=== PATIENT | male | born 1965 | race African-American/Black ===

== ENCOUNTER 2017-01-09 09:53 | Inpatient (IN) | payer MEDICARE ==
[2017-01-09 12:00] VITALS: BMI 26.4
[2017-01-09] MEDS ORDERED: ACETAMINOPHEN 325 MG TABLET (FP) PO PRN (12:43)
[2017-01-09] MEDS ORDERED: chlordiazePOXIDE HCL 25 MG CAPSULE PO PRN (12:43)
[2017-01-09] MEDS ORDERED: NICOTINE POLACRILEX 4 MG GUM BUC PRN (12:43)
[2017-01-09] MEDS ORDERED: MENTHOL/PHENOL 1 EACH UD MM PRN (12:43)
[2017-01-09] MEDS ORDERED: LOPERAMIDE HCL 2 MG CAPSULE PO PRN (12:43)
[2017-01-09] MEDS ORDERED: IBUPROFEN 400 MG TABLET (FP) PO PRN (12:43)
[2017-01-09] MEDS ORDERED: MAG HYDROX/AL HYDROX/SIMETH 30 ML UNIT-DOSE CUP PO PRN (12:43)
[2017-01-09] MEDS ORDERED: diphenhydrAMINE HCL 50 MG CAPSULE PO PRN (12:43)
[2017-01-09] MEDS ORDERED: guaiFENesin/D-METHORPHAN HB 10 ML UNIT-DOSE CUPS PO PRN (12:43)
[2017-01-09] MEDS ORDERED: P-EPHED 60MG/TRIPROLIDI 2.5MG TABLET PO PRN (12:43)
[2017-01-09] MEDS ORDERED: MAGNESIUM CITRATE 300 ML BOTTLE PO PRN (12:43)
[2017-01-09] MEDS ORDERED: hydrOXYzine PAMOATE 50 MG CAPSULE (FP) PO PRN (12:43)
[2017-01-09] MEDS ORDERED: MAGNESIUM HYDROX 2400MG/30ML ORAL SUSPENSION 30 ML CUP PO PRN (12:43)
--- NOTE | 2017-01-09 12:43 | HP ---
CIWA Score - CIWA Score Nausea/Vomitin-Int. Nausea w/Dry Heave Muscle Tremors: 4-Moderate,w/Arms Extend Anxiety: 4-Mod. Anxious/Guarded Agitation: 4-Moderately Restless Paroxysmal Sweats: 3 Orientation: 0-Oriented Tacttile Disturbances: 0-None Auditory Disturbances: 0-None Visual Disturbances: 0-None Headache: 0-None Present CIWA-Ar Total Score: 19 Admission ROS S - HPI Chief Complaint: alcohol withdrawal sx noted by emergency department, patient denies Allergies/Adverse Reactions: Allergies Allergy/AdvReac Type Severity Reaction Status Date / Time No Known Allergies Allergy Verified 01/09/17 12:45 History of Present Illness: 51 yo m with no sig nificant medical history went to ED with abod pain nause and vomiting after eating bad meal as per patient, had twisted his ankle with brother and reports pain left ankle. In ED found to have elevated blood alcohol level and was intoxicated and then developed alcohol withdrawal sx, tremors which were treated with benzodiazepines and patient referred for admission for inpatient alcohol detox. patient denies h/o seziures, DTs but does admit to tremors and sweats when he does not drink, no h/o drug treatment or detox before. h/o DWI in past, smokes 1PPD. agrees to stay for accelerated etox from alcohol as he spent one day in ED. and was treated there. PMHx pneumonia 2 years ago. Exam Limitations: No Limitations - Ebola screening Have you traveled outside of the country in the last 21 days: No Have you had contact with anyone from an Ebola affected area: No Have you been sick,other than usual withdrawal symptoms: No Do you have a fever: No - Review of Systems Constitutional: Chills, Diaphoresis, Unintentional Wgt. Loss EENT: reports: No Symptoms Reported Respiratory: reports: No Symptoms reported Cardiac: reports: No Symptoms Reported GI: reports: Diarrhea (reports from food poisoning but may be from alcohol use) , Nausea, Poor Appetite, Poor Fluid Intake, Vomiting, Abdominal cramping : reports: No Symptoms Reported Musculoskeletal: reports: Joint Pain (left ankle with ninoska bandage from sprain), Joint Swelling (ankle injury 2 weeks ago, wrapped with ninoska bandage, no fully examined in ED but able to move PPP good blood flow, erythem with blister and bruising posterior medial malleolus blister 2 cm), Joint Stiffness Integumentary: reports: Flushing, Sweating Neuro: reports: Tremors, Weakness, Unsteady Gait (from ankle pain) Hematology: reports: No Symptoms Reported Psychiatric: reports: Judgement Intact, Mood/Affect Appropiate, Orientated x3, Agitated, Anxious, Depressed Other Systems: Reviewed and Negative Patient History - Patient Medical History Hx Anemia: No Hx Asthma: No Hx Chronic Obstructive Pulmonary Disease (COPD): No Hx Cancer: No Hx Cardiac Disorders: No Hx Congestive Heart Failure: No Hx Hypertension: No Hx Hypercholesterolemia: No Hx Pacemaker: No HX Cerebrovascular Accident: No Hx Seizures: No Hx Dementia: No Hx Diabetes: No Hx Gastrointestinal Disorders: No Hx Liver Disease: No Hx Genitourinary Disorders: No Hx Sexually Transmitted Disorders: No Hx Renal Disease (ESRD): No Hx Thyroid Disease: No Hx Human Immunodeficiency Virus (HIV): No Hx Hepatitis C: No Hx Depression: No Hx Suicide Attempt: No Hx Bipolar Disorder: No Hx Schizophrenia: No - Patient Surgical History Past Surgical History: No Anesthesia Reaction: No - PPD History Previous Implant?: Yes Documented Results: Negative w/o proof Implanted On Prior [facility] Admission?: No PPD to be Administered?: Yes - Reproductive History Patient is a Female of Child Bearing Age (11 -55 yrs old): No Patient : No - Smoking Cessation Smoking history: Current every day smoker Aproximately how many cigarettes per day: 20 If you are a former smoker, when did you quit?: REFUSED BOOKLET Initiated information on smoking cessation: Yes 'Breaking Loose' booklet given: 01/09/17 - Substance & Tx. History Hx Alcohol Use: Yes Hx Substance Use: No Substance Use Type: Alcohol Hx Substance Use Treatment: No (dwi in past???) - Substances Abused Alcohol-beer Route: Oral Frequency: Daily Amount used: 1-6 pk. Age of first use: 9 Date of Last Use: 01/08/17 Family Disease History - Family Disease History Family History: Denies Admission Physical Exam S - Vital Signs Vital Signs: Vital Signs - 24 hr 01/09/17 11:58 Temperature 99.0 F Pulse Rate 96 H Respiratory 16 Rate Blood Pressure 125/78 - Physical General Appearance: Yes: Nourished, Appropriately Dressed, Disheveled, Moderate Distress, Tremorous, Irritable, Sweating, Anxious HEENTM: Yes: Within Normal Limits, EOMI, Hearing grossly Normal, Normal ENT Inspection, Normocephalic, Normal Voice, KATHERINE, Pharynx Normal Respiratory: Yes: Within Normal Limits, Chest Non-Tender, Lungs Clear, Normal Breath Sounds, No Respiratory Distress, No Accessory Muscle Use Neck: Yes: Within Normal Limits, No masses,lesions,Nodules, Supple, Trachea in good position Breast: Yes: Breast Exam Deferred Cardiology: Yes: Within Normal Limits, Regular Rhythm, Regular Rate, S1, S2 Abdominal: Yes: Within Normal Limits, Normal Bowel Sounds, Non Tender, Flat, Soft Genitourinary: Yes: Within Normal Limits Back: Yes: Within Normal Limits, Normal Inspection Musculoskeletal: Yes: full range of Motion, Joint Stiffness, Joint swelling, Other (swollen ankle) Extremities: Yes: Normal Capillary Refill, Normal Inspection, Normal Range of Motion, Non-Tender, Tremors, Pedal Edema (left ankle with bruising andd blister) Neurological: Yes: flash 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 II-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 NML intact, Fully Oriented, Alert, Motor Strength 5/5, Normal Response, Depressed Affect Integumentary: Yes: Normal Color, Warm, Diaphoresis, Moist Lymphatic: Yes: Within Normal Limits - Addiitonal Findings: withdrawal sx - Diagnostic (1) Alcohol withdrawal Current Visit: Yes Status: Acute Qualifiers: Complication of substance-induced condition: uncomplicated Qualified Code(s): F10.230 - Alcohol dependence with withdrawal, uncomplicated; F10.230 - Alcohol dependence with withdrawal, uncomplicated; F10.230 - Alcohol dependence with withdrawal, uncomplicated (2) Insomnia Current Visit: Yes Status: Acute (3) Left ankle sprain Current Visit: Yes Status: Acute (4) Nicotine dependence Current Visit: Yes Status: Acute Qualifiers: Nicotine product type: cigarettes Cleared for Admission [facility] - Detox or Rehab [facility] Level of Care: Medically Managed Detox Regimen/Protocol: Librium [facility] Breath Alcohol Content Breath Alcohol Content: 0 Urine Drug Screen - Results Drug Screen Negative: No Urine Drug Screen Results: BZO-Benzodiazepines
[2017-01-09] MEDS ORDERED: chlordiazePOXIDE HCL 25 MG CAPSULE PO ONE (14:51)
[2017-01-09] MEDS ORDERED: ONDANSETRON *ODT* 4 MG TABLET SL PRN (14:53)
[2017-01-09] MEDS: NAPROXEN 500 MG TABLET (FP) PO SCH ×2 (15:52→22:29)
[2017-01-09] MEDS: PANTOPRAZOLE 40 MG TABLET (FP) PO SCH (15:52)
[2017-01-09] MEDS: NICOTINE 21 MG/24 HOURS TOPICAL PATCH TD SCH (15:57)
[2017-01-09] MEDS: CEPHALEXIN MONOHYDRATE 500 MG CAPSULE (UD) PO SCH ×2 (17:49→23:45)
[2017-01-09] MEDS: chlordiazePOXIDE HCL 25 MG CAPSULE PO SCH ×2 (17:49→22:29)
[2017-01-09] MEDS: THIAMINE HCL 100 MG TABLET (FP) PO SCH (22:29)
[2017-01-10 00:07] LABS: URINE APPEARANCE CLEAR; URINE BILIRUBIN NEGATIVE (NEGATIVE); URINE BLOOD NEGATIVE (NEGATIVE); URINE COLOR YELLOW; URINE GLUCOSE (UA) NEGATIVE (NEGATIVE); URINE KETONE 1+ (NEGATIVE); URINE NITRITE NEGATIVE (NEGATIVE); URINE PROTEIN NEGATIVE (NEGATIVE); URINE UROBILINOGEN NEGATIVE mg/dL (0.2-1.0)
[2017-01-10] MEDS: chlordiazePOXIDE HCL 25 MG CAPSULE PO SCH ×2 (05:35→10:26)
[2017-01-10] MEDS: CEPHALEXIN MONOHYDRATE 500 MG CAPSULE (UD) PO SCH ×4 (05:35→23:30)
[2017-01-10] MEDS: NICOTINE 21 MG/24 HOURS TOPICAL PATCH TD SCH (10:26)
[2017-01-10] MEDS: NAPROXEN 500 MG TABLET (FP) PO SCH ×2 (10:26→22:39)
[2017-01-10] MEDS: PRENATAL VITAMINS W/ FOLIC ACID TABLET (FP) PO SCH (10:26)
[2017-01-10] MEDS: PANTOPRAZOLE 40 MG TABLET (FP) PO SCH (10:26)
[2017-01-10 12:04] LABS: URINE LEUK ESTERASE Negative (NEGATIVE)
[2017-01-10] MEDS ORDERED: chlordiazePOXIDE HCL 25 MG CAPSULE PO SCH (17:00)
[2017-01-10] MEDS: chlordiazePOXIDE 5 MG CAPSULE PO SCH ×2 (17:59→22:40)
--- NOTE | 2017-01-10 20:17 | PN ---
[facility] CIWA - CIWA Score Nausea/Vomitin-No Nausea/No Vomiting Muscle Tremors: 4-Moderate,w/Arms Extend Anxiety: 2 Agitation: 2 Paroxysmal Sweats: 3 Orientation: 2-Disoriented Date<2 days Tacttile Disturbances: 0-None Auditory Disturbances: 0-None Visual Disturbances: 3-Moderate Sensitivity Headache: 0-None Present CIWA-Ar Total Score: 16 S Progress Note (SOAP) Subjective: Tremors, Fatigue, Sweating, Body Aches. Objective: PT. A & O X 2 (DISORIENTED ABOUT DAY / DATE). PT. OBSERVED AMBULATING ON UNIT. NO ACUTE DISTRESS. 01/10/17 20:13 Vital Signs Temperature 98.5 F 01/10/17 19:20 Pulse Rate 90 01/10/17 19:20 Respiratory Rate 19 01/10/17 19:20 Blood Pressure 154/106 01/10/17 19:20 O2 Sat by Pulse Oximetry (%) Laboratory Tests 01/09/17 01/10/17 01/10/17 23:20 08:00 08:00 Sickle Cell Screen Negative Urine Color Yellow Urine Appearance Clear Urine pH 5.0 Ur Specific [place] 1.020 Urine Protein Negative Urine Glucose (UA) Negative Urine Ketones 1+ H Urine Blood Negative Urine Nitrite Negative Urine Bilirubin Negative Urine Urobilinogen Negative Ur Leukocyte Esterase Negative RPR Titer Nonreactive ADMISSION LAB RESULTS NOTED. 01/10/17 20:18 Assessment: 01/10/17 20:18 WITHDRAWAL SYMPTOMS. Plan: CONTINUE DETOX. CONTINUE TO MONITOR BP.
[2017-01-10] MEDS: ZOLPIDEM TARTRATE 10 MG TABLET (PARK CARE ONLY) PO PRN (22:39)
[2017-01-10] MEDS: THIAMINE HCL 100 MG TABLET (FP) PO SCH (22:39)
[2017-01-10] MEDS ORDERED: cloNIDine HCL 0.1 MG TABLET PO ONE (22:43)
[2017-01-11] MEDS: CEPHALEXIN MONOHYDRATE 500 MG CAPSULE (UD) PO SCH ×4 (05:56→23:00)
[2017-01-11] MEDS: chlordiazePOXIDE 5 MG CAPSULE PO SCH ×2 (05:56→10:00)
[2017-01-11] MEDS: PRENATAL VITAMINS W/ FOLIC ACID TABLET (FP) PO SCH (10:00)
[2017-01-11] MEDS: NICOTINE 21 MG/24 HOURS TOPICAL PATCH TD SCH (10:00)
[2017-01-11] MEDS: PANTOPRAZOLE 40 MG TABLET (FP) PO SCH (10:00)
[2017-01-11] MEDS ORDERED: BACITRACIN 15 GM TUBE TOPICAL OINTMENT TP SCH (10:00)
[2017-01-11] MEDS: NAPROXEN 500 MG TABLET (FP) PO SCH ×2 (10:00→22:37)
[2017-01-11] MEDS ORDERED: BACITRACIN 0.9 GM PACKET TP SCH ×2 (10:03)
--- NOTE | 2017-01-11 11:45 | PN ---
S CIWA - CIWA Score Nausea/Vomitin-No Nausea/No Vomiting Muscle Tremors: 3 Anxiety: 3 Agitation: 4-Moderately Restless Paroxysmal Sweats: 3 Orientation: 0-Oriented Tacttile Disturbances: 0-None Auditory Disturbances: 0-None Visual Disturbances: 0-None Headache: 0-None Present CIWA-Ar Total Score: 13 [facility] Progress Note (SOAP) Subjective: Anxiety,tremors,interrupted sleep,restless Objective: 01/11/17 11:44 Vital Signs 01/11/17 01/11/17 01/11/17 03:56 05:00 10:02 Temperature 97.8 F 97.7 F Pulse Rate 77 106 H Respiratory 18 18 18 Rate Blood Pressure 150/100 139/86 01/11/17 10:07 Temperature 97.7 F Pulse Rate 106 H Respiratory 18 Rate Blood Pressure 139/86 Laboratory Tests 01/09/17 01/10/17 01/10/17 23:20 08:00 08:00 Sickle Cell Screen Negative Urine Color Yellow Urine Appearance Clear Urine pH 5.0 Ur Specific [place] 1.020 Urine Protein Negative Urine Glucose (UA) Negative Urine Ketones 1+ H Urine Blood Negative Urine Nitrite Negative Urine Bilirubin Negative Urine Urobilinogen Negative Ur Leukocyte Esterase Negative RPR Titer Nonreactive labs noted Assessment: 01/11/17 11:45 Withdrawal sx. Plan: Continue detox
[2017-01-11] MEDS ORDERED: chlordiazePOXIDE 5 MG CAPSULE PO SCH (17:00)
[2017-01-11] MEDS: chlordiazePOXIDE HCL 10 MG CAPSULE PO SCH ×2 (17:26→22:37)
--- NOTE | 2017-01-11 17:30 | EKG ---
Test Reason : Blood Pressure : / mmHG Vent. Rate : 091 BPM Atrial Rate : 091 BPM P-R Int : 184 ms QRS Dur : 090 ms QT Int : 388 ms P-R-T Axes : 057 014 032 degrees QTc Int : 477 ms NORMAL SINUS RHYTHM POOR R WAVE PROGRESSION V1-V3 NONSPECIFIC ST-T ABNORMALITIES WHEN COMPARED WITH ECG OF 09-JAN-2017 06:14, NO SIGNIFICANT CHANGE WAS FOUND Confirmed by CULLEN WATSON MD ([id number]) on 01/11/2017 5:29:51 PM Referred By: Confirmed By:CULLEN WATSON MD
[2017-01-11] MEDS: THIAMINE HCL 100 MG TABLET (FP) PO SCH (22:37)
[2017-01-11] MEDS ORDERED: cloNIDine HCL 0.1 MG TABLET PO ONE (22:37)
[2017-01-11] MEDS: ZOLPIDEM TARTRATE 10 MG TABLET (PARK CARE ONLY) PO PRN (22:38)
[2017-01-12] MEDS: chlordiazePOXIDE HCL 10 MG CAPSULE PO SCH ×2 (05:23→10:35)
[2017-01-12] MEDS: CEPHALEXIN MONOHYDRATE 500 MG CAPSULE (UD) PO SCH ×3 (06:48→18:00)
[2017-01-12] MEDS ORDERED: SELENIUM SULFIDE 2.5% LOTION 4 OZ. TP SCH (10:00)
[2017-01-12] MEDS: PRENATAL VITAMINS W/ FOLIC ACID TABLET (FP) PO SCH (10:35)
[2017-01-12] MEDS: NAPROXEN 500 MG TABLET (FP) PO SCH ×2 (10:35→22:46)
[2017-01-12] MEDS: NICOTINE 21 MG/24 HOURS TOPICAL PATCH TD SCH (10:36)
[2017-01-12] MEDS: PANTOPRAZOLE 40 MG TABLET (FP) PO SCH (10:36)
--- NOTE | 2017-01-12 12:03 | PN ---
[facility] Progress Note (SOAP) Subjective: ANXIETY,SWEATS,FATIGUE, Objective: 01/12/17 12:02 Vital Signs 01/12/17 01/12/17 06:34 10:56 Temperature 97.1 F L 98.2 F Pulse Rate 84 79 Respiratory 16 20 Rate Blood Pressure 115/76 150/96 Laboratory Last Values Sickle Cell Screen Negative (NEGATIVE) 01/10/17 08:00 Urine Color Yellow 01/09/17 23:20 Urine Appearance Clear 01/09/17 23:20 Urine pH 5.0 (5.0-8.0) 01/09/17 23:20 Ur Specific [place] 1.020 (1.005-1.025) 01/09/17 23:20 Urine Protein Negative (NEGATIVE) 01/09/17 23:20 Urine Glucose (UA) Negative (NEGATIVE) 01/09/17 23:20 Urine Ketones 1+ (NEGATIVE) H 01/09/17 23:20 Urine Blood Negative (NEGATIVE) 01/09/17 23:20 Urine Nitrite Negative (NEGATIVE) 01/09/17 23:20 Urine Bilirubin Negative (NEGATIVE) 01/09/17 23:20 Urine Urobilinogen Negative mg/dL (0.2-1.0) 01/09/17 23:20 Ur Leukocyte Esterase Negative (NEGATIVE) 01/09/17 23:20 RPR Titer Nonreactive (NONREACTIVE) 01/10/17 08:00 Assessment: 01/12/17 12:02 WITHDRAWAL SX Plan: CONTINUE DETOX
[2017-01-12 13:43] VITALS: BP 131/77; PULSE 97; TEMP 96.1
--- NOTE | 2017-01-12 15:09 | PN ---
[facility] Progress Note Note: PT C/O SEVERE PAIN/SWELLING AND BLOODY OOZING LIQUID TO LEFT FOOT/ANKLE. PT WAS IN THE ER AT [facility] ON 01/09/17 BEFORE COMING INTO DETOX(SEE ER NOTES). PT STATES HE HAD TRUAMA (SPRAIN TO LEFT FOOT ONE WEEK AGO BUT FOOT STARTED OOZING 3-4 DAYS AGO. MEANWHILE PT COMPLETED REDUCED REGIMEN DETOX PER PROTOCOL TODAY AND HAD FOOT/ANKLE XRAY BUT RESULT IS PENDING AT THIS TIME. PT WAS ALSO ON CEPHALAXINE 500 MG PO Q6H. I HAVE EXPLAINED TO PT ABOUT THE NEED FOR FURTHER EVALUATION AND TREATMENT AT AN APPROPRIATE FACILITY. ALERT O X 3. MEDICALLY STABLE. OOB WITH STEADY GAIT BUT LIMPING ON AMBULATION. Vital Signs Temperature 96.1 F L 01/12/17 13:43 Pulse Rate 97 H 01/12/17 13:43 Respiratory Rate 18 01/12/17 13:43 Blood Pressure 131/77 01/12/17 13:43 O2 Sat by Pulse Oximetry (%) FOOT EXAM: LEFT ANKLE/FOOT SWELLING WITH SEROSANGUINOUS DRAINAGE AND MULTIPLE BLISTERS. IMPRESSION:LEFT FOOT/ANKLE SWELLING WITH DRAINAGE LEFT FOOT BLISTERS R/O FRACTURE, LEFT FOOT PLAN:TRANSFER PT BY AMBULANCE TO [facility] ER FOR EVALUATION AND POSSIBLE ORTHOPEDIC CONSULT.
--- NOTE | 2017-01-12 15:56 | DS ---
[facility] Detox Discharge Summary Admission Date: 01/09/17 Discharge Date: 01/12/17 - History Present History: Alcohol Dependence Additional Comments: PT COMPLETED DETOX TODAY. HOWEVER PT WAS TRANSPORTED TO [facility] FOR TREATMENT DUE TO LEFT LEG TRUAM SUSTAINED AT HOME A WEEK OR MOR AGO BUT APPEARS TO BE GETTING. WORSE. Pertinent Past History: S/P LEFT LEG TRUAMA(SPRAIN) - Physical Exam Results Vital Signs: Vital Signs Temperature 96.1 F L 01/12/17 13:43 Pulse Rate 97 H 01/12/17 13:43 Respiratory Rate 18 01/12/17 13:43 Blood Pressure 131/77 01/12/17 13:43 O2 Sat by Pulse Oximetry (%) Pertinent Admission Physical Exam Findings: WITHDRAWAL SX Laboratory Last Values Sickle Cell Screen Negative (NEGATIVE) 01/10/17 08:00 Urine Color Yellow 01/09/17 23:20 Urine Appearance Clear 01/09/17 23:20 Urine pH 5.0 (5.0-8.0) 01/09/17 23:20 Ur Specific [place] 1.020 (1.005-1.025) 01/09/17 23:20 Urine Protein Negative (NEGATIVE) 01/09/17 23:20 Urine Glucose (UA) Negative (NEGATIVE) 01/09/17 23:20 Urine Ketones 1+ (NEGATIVE) H 01/09/17 23:20 Urine Blood Negative (NEGATIVE) 01/09/17 23:20 Urine Nitrite Negative (NEGATIVE) 01/09/17 23:20 Urine Bilirubin Negative (NEGATIVE) 01/09/17 23:20 Urine Urobilinogen Negative mg/dL (0.2-1.0) 01/09/17 23:20 Ur Leukocyte Esterase Negative (NEGATIVE) 01/09/17 23:20 RPR Titer Nonreactive (NONREACTIVE) 01/10/17 08:00 Hepatitis C Antibody <0.1 s/co ratio (0.0-0.9) 01/11/17 08:14 - Treatment Hospital Course: Detox Protocol Followed, Detoxed Safely, Responded well, Discharged Condition Good (MEDICALLY STABLE.) - Medication Discharge Medications: Ambulatory Orders NK [No Known Home Medication] 01/23/15 - Diagnosis (1) Left ankle sprain Current Visit: Yes Status: Acute Qualifiers: Encounter type: subsequent encounter (2) Nicotine dependence Current Visit: Yes Status: Acute Qualifiers: Nicotine product type: cigarettes Substance use status: in withdrawal Qualified Code(s): F17.213 - Nicotine dependence, cigarettes, with withdrawal; F17.213 - Nicotine dependence, cigarettes, with withdrawal (3) Alcohol dependence with uncomplicated withdrawal Current Visit: Yes Status: Acute - AMA Did Patient Leave Against Medical Advice: No
[2017-01-12] MEDS ORDERED: chlordiazePOXIDE HCL 10 MG CAPSULE PO SCH (17:00)
[2017-01-12] MEDS: THIAMINE HCL 100 MG TABLET (FP) PO SCH (22:47)
== END 2017-01-12 23:19 | disposition short-term general hospital (02) | DRG 775 ==
LOC: YASAS 09:53 → Y3N 14:31
PROVIDERS: ADMIT Internal Medicine; ATTEND Internal Medicine
PROC: HZ2ZZZZ Detoxification Services for Substance Abuse Treatment (ICD-10-PCS; principal; 2017-01-09)
DX: F10.230 Alcohol dependence with withdrawal, uncomplicated (principal); F17.213 Nicotine dependence, cigarettes, with withdrawal; G47.00 Insomnia, unspecified; S93.402D Sprain of unspecified ligament of left ankle, subsequent encounter; S90.522D Blister (nonthermal), left ankle, subsequent encounter; X58.XXXD Exposure to other specified factors, subsequent encounter
CPT/HCPCS: 36415; 73610-TC-LT; 73630-TC-LT; 81003; 85660; 86593; 86803; 93005; 93010

== ENCOUNTER → 2017-01-09 | Emergency (ER) | payer SELFPAY ==
[~2017-01-09] MED LIST: CLINDAMYCIN 600MG PREMIX IVPB 50 ML IVPB ONE; ONDANSETRON 4 MG/2 ML VIAL IVPB ONE; ONDANSETRON 4 MG/2 ML VIAL ONE; PIPERACILLIN/TAZOB 3.375 GM 50 ML IVPB ONE; SODIUM CHLORIDE 1,000 ML IV STA; VANCOMYCIN 1 GRAM (PRE-DOCKED) 250 ML IVPB ONE; chlordiazePOXIDE HCL 25 MG CAPSULE ONE; chlordiazePOXIDE HCL 25 MG CAPSULE PO ONE
[2017-01-09 02:36] LABS: BASOPHIL 0.8 % (0-2.0); EOSINOPHIL 0.7 % (0-4.5); MCHC 33.6 g/dl (32.0-35.9); MEAN CELL VOLUME 95.2 fl (80-96); MEAN PLT VOLUME 8.3 fl (7.5-11.1); NEUTROPHILS 70.6 % (42.8-82.8); PLATELET COUNT 203 K/MM3 (134-434); RDW 16.7 % (11.9-15.9); WHITE BLOOD COUNT 10.1 K/mm3 (4.0-10.0)
[2017-01-09 03:05] VITALS: BMI 27.4
[2017-01-09 03:06] LABS: ALBUMIN 4.1 g/dl (3.4-5.0); AMYLASE 110 U/L (25-115); ANION GAP 9 (8-16); CALCIUM 9.4 mg/dL (8.5-10.1); CO2 24 mmol/L (21-32); CREATININE 0.9 mg/dL (0.7-1.3); GLUCOSE,RANDOM 96 mg/dL (74-106); SGOT/AST 49 U/L (15-37); SGPT/ALT 36 U/L (12-78)
[2017-01-09 03:08] LABS: ALK PHOS 94 U/L (45-117); BILIRUBIN,TOTAL 0.4 mg/dL (0.2-1.0); TOT PROT 8.5 g/dl (6.4-8.2)
[2017-01-09 03:11] LABS: INR 0.92 (0.82-1.09); PROTHROMBIN TIME (PATIENT) 10.1 SEC (9.98-11.88)
--- NOTE | 2017-01-09 03:16 | PDOC ---
History of Present Illness - General Chief Complaint: Nausea/Vomiting Stated Complaint: SICK Time Seen by Provider: 01/09/17 02:16 History Source: Patient Exam Limitations: No Limitations - History of Present Illness Initial Comments: 01/09/17 02:57 Patient is a 51M who reports no significant medical history here today complaining of epigastric abdominal pain, nausea and vomiting for the past several hours. He is unsure of when symptoms started. He denies bloody vomit and coffee ground emesis. He is unsure of how many times he has vomited. He denies fevers, chills, shortness of breath and chest pain. He endorses smoking and says that his last drink was three weeks ago. His last bowel movement was 1- 2 days ago and is unsure if he has passed any gas. He denies any prior surgical history. He has a wrap on his left ankle with associated bruising. He says that he twisted his ankle and he has had some pain. He says he is still ambulatory. Past History - Past Medical History Allergies/Adverse Reactions: Allergies Allergy/AdvReac Type Severity Reaction Status Date / Time No Known Allergies Allergy Verified 01/23/15 23:40 Home Medications: Ambulatory Orders NK [No Known Home Medication] 01/23/15 - Suicide/Smoking/Psychosocial Hx Smoking Status: Yes Smoking History: Current every day smoker Number of Cigarettes Smoked Daily: 20 If you are a former smoker, when did you quit?: REFUSED BOOKLET Information on smoking cessation initiated: No 'Breaking Loose' booklet given: 01/23/15 Hx Alcohol Use: Yes Drug/Substance Use Hx: (DENIES) Substance Use Type: Alcohol Review of Systems - Review of Systems Comments:: 01/09/17 03:15 GENERAL/CONSTITUTIONAL: No fever or chills. No weakness. HEAD, EYES, EARS, NOSE AND THROAT: No change in vision. No sore throat. CARDIOVASCULAR: No chest pain or shortness of breath RESPIRATORY: No cough, wheezing, or hemoptysis. GASTROINTESTINAL: Positive for nausea and vomiting. Negative for diarrhea or constipation. GENITOURINARY: No dysuria, frequency, or change in urination. MUSCULOSKELETAL: Positive for ankle pain. No neck or back pain. SKIN: No rash NEUROLOGIC: No headache, vertigo, loss of consciousness, or change in strength/ sensation. ENDOCRINE: No increased thirst. No abnormal weight change HEMATOLOGIC/LYMPHATIC: No anemia, easy bleeding, or history of blood clots. ALLERGIC/IMMUNOLOGIC: No hives or skin allergy. *Physical Exam - Vital Signs Last Vital Signs Temp Pulse Resp BP Pulse Ox 98.6 F 125 H 22 146/102 98 01/09/17 02:12 01/09/17 02:12 01/09/17 02:12 01/09/17 02:12 01/09/17 02:12 - Physical Exam Comments: 01/09/17 03:17 GENERAL: Awake, alert, and fully oriented, poor dentition, smells of alcohol HEAD: No signs of trauma, normocephalic, atraumatic EYES: PERRLA, EOMI, sclera anicteric, conjunctiva clear ENT: Auricles normal inspection, hearing grossly normal, nares patent, oropharynx clear without exudates. Moist mucosa LUNGS: Tachypneic, speaks full sentences, clear to auscultation bilaterally HEART: Tachycardic. Normal rhythm, normal S1 and S2, no murmurs, rubs or gallops , peripheral pulses normal and equal bilaterally. ABDOMEN: Distended, tender in epigastrium. Hyperactive bowel sounds. No guarding, no rebound. No masses EXTREMITIES: Ankle wrap on left ankle, bruising on ankle. Multiple other bruises in various stages of healing on extremities. NEUROLOGICAL: Cranial nerves II through XII grossly intact. Normal speech, no focal sensorimotor deficits SKIN: Warm, Dry, normal turgor, no rashes or lesions noted. ED Treatment Course - LABORATORY CBC & Chemistry Diagram: 01/09/17 02:30 01/09/17 02:30 - ADDITIONAL ORDERS Additional order review: 01/09/17 02:30 RBC 4.40 MCV 95.2 MCHC 33.6 RDW 16.7 H MPV 8.3 D Neutrophils % 70.6 D Lymphocytes % 19.5 D Monocytes % 8.4 Eosinophils % 0.7 Basophils % 0.8 - RADIOLOGY Radiology Studies Ordered: Category Date Time Status ABDOMEN & PELVIS CT WITH CONTR [CT] Stat CT Scan 01/09/17 02:54 Ordered - Medications Given in the ED: ED Medications Discontinued Medications Generic Name Dose Route Start Last Admin Trade Name Freq PRN Reason Stop Dose Admin Lorazepam 2 mg 01/09/17 02:31 01/09/17 02:53 Ativan Injection - IVPUSH 01/09/17 02:32 2 mg ONCE ONE Administration Ondansetron HCl 4 mg 01/09/17 02:27 01/09/17 02:45 Zofran Injection IVPB 01/09/17 02:28 4 mg ONCE ONE Administration Medical Decision Making - Medical Decision Making 01/09/17 03:18 51M with no reported history here today complaining of epigastric abdominal pain. Smells of alcohol. Tachycardic, tachypneic. Differential diagnosis is broad and includes, but is not limited to: alcohol withdrawal, sbo, pancreatitis. Will evaluate with labs, ekg and ct with po and iv contrast. Will treat with fluids, zofran and ativan. Not able to tolerate PO. After workup initiated, patient had large bowel movement per nursing. Still complaining of abdominal pain. 01/09/17 03:29 Laboratory Tests 01/09/17 01/09/17 01/09/17 02:28 02:30 02:30 WBC 10.1 H D Hgb 14.1 Hct 41.9 Plt Count 203 D Lipase 200 Alcohol, Quantitative 9.0 H* Slight elevation in white count. Lipase negative. Alcohol level 9.0 01/09/17 06:24 EKG shows sinus tachycardia, normal axis, no st elevations/depressions, no t- wave abnormalities. CT Abdomen shows no SBO, no appendicitis, no free air. Normal. Additional history gathered from brother. As suspected, patient is an alcoholic. Will continue to treat withdrawal symptoms until [facility] opens this morning. 01/09/17 06:29 Patient remains tachycardic. Will give another liter of saline, librium and ativan. *DC/Admit/Observation/Transfer Diagnosis at time of Disposition: Alcohol withdrawal - Discharge Dispostion Disposition: HOME Condition at time of disposition: Good Admit: No - Patient Instructions Printed Discharge Instructions: DI for Delirium Tremens, DI for Alcohol Abuse
[2017-01-09 05:27] LABS: URINE APPEARANCE CLEAR; URINE BILIRUBIN NEGATIVE (NEGATIVE); URINE BLOOD NEGATIVE (NEGATIVE); URINE COLOR YELLOW; URINE GLUCOSE (UA) NEGATIVE (NEGATIVE); URINE KETONE 2+ (NEGATIVE); URINE NITRITE NEGATIVE (NEGATIVE); URINE UROBILINOGEN NEGATIVE mg/dL (0.2-1.0)
[2017-01-09 05:28] LABS: URINE PROTEIN 1+ (NEGATIVE)
[2017-01-09 05:47] LABS: URINE MARIJUANA THC NEGATIVE ng/ml (CUTOFF=50)
--- NOTE | 2017-01-09 05:57 | PDOC ---
Attending Attestation - Resident Resident Name: Star Sanchez - ED Attending Attestation I have performed the following: I have examined & evaluated the patient, The case was reviewed & discussed with the resident, I agree w/resident's findings & plan, Exceptions are as noted - HPI HPI: 01/13/17 19:44 Pt intox from alcohol. Family member concerned that pt has been tremenulous and needs detox - Physicial Exam PE: 01/13/17 19:44 *Physical Exam General Appearance: Yes: Appropriately Dressed. No: Apparent Distress, Intoxicated HEENT: positive: EOMI, KATHERINE, Normal ENT Inspection, Normal Voice, TMs Normal, Pharynx Normal. negative: Pale Conjunctivae, Photophobia, Scleral Icterus (R), Scleral Icterus (L) Neck: positive: Trachea midline, Normal Thyroid, Supple. negative: Tender, Rigid, Carotid bruit, Stridor, Lymphadenopathy (R), Lymphadenopathy (L), Thyromegaly Respiratory/Chest: positive: Lungs Clear, Normal Breath Sounds. negative: Chest Tender, Respiratory Distress, Accessory Muscle Use, Labored Respiration, RES, Crackles, Rales, Rhonchi, Stridor, Wheezing, Dullness Cardiovascular: positive: Regular Rhythm, Regular Rate, S1, S2. negative: Edema , JVD, Murmur, Bradycardia, Tachycardia Vascular Pulses: Dorsalis-Pedis (R): 2+, Doralis-Pedis (L): 2+ Gastrointestinal/Abdominal: positive: Normal Bowel Sounds, Flat, Soft. negative : Tender, Organomegaly, Pulsatile Mass, Increased Bowel Sounds, Decreased BS, Distended, Guarding, Rebound, Hernia, Hepatomegaly, Spleenomegaly Lymphatic: negative: Adenopathy, Tenderness Musculoskeletal: positive: Normal Inspection. negative: CVA Tenderness, Decreased Range of Motion Extremity: positive: Normal Capillary Refill, Normal Inspection, Normal Range of Motion, Pelvis Stable. negative: Tender, Pedal Edema, Swelling, Erythema Integumentary: positive: Normal Color, Dry, Warm. 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 negative: EOM Palsy, Facial Droop, Sensory Deficit - Medical Decision Making 01/13/17 19:45 Pt signed out for possible detox in AM.
[2017-01-09 06:10] LABS: URINE BACTERIA RARE /hpf (NONE SEEN); URINE MUCUS RARE; URINE RBC 3 /hpf (0-3)
--- NOTE | 2017-01-09 08:19 | PDOC ---
*Physical Exam - Vital Signs Last Vital Signs Temp Pulse Resp BP Pulse Ox 98.6 F 108 H 20 116/59 98 01/09/17 02:12 01/09/17 07:45 01/09/17 07:45 01/09/17 07:45 01/09/17 07:45 - Physical Exam General Appearance: Yes: Nourished, Appropriately Dressed HEENT: positive: EOMI, KATHERINE Neck: positive: Trachea midline, Supple Respiratory/Chest: positive: Lungs Clear, Normal Breath Sounds Cardiovascular: positive: S1, S2, Tachycardia Vascular Pulses: Dorsalis-Pedis (R): 2+, Doralis-Pedis (L): 2+ Gastrointestinal/Abdominal: positive: Normal Bowel Sounds, Distended Musculoskeletal: negative: CVA Tenderness (R), CVA Tenderness (L) Extremity: positive: Normal Capillary Refill, Normal Inspection, Other (Patient' s L ankle is wrapped in ankle brace; 2-3+ pulse, sensation, proprioception intact, full ROM, weight bearing, ambulates) Integumentary: positive: Normal Color, Dry, Warm 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: 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: 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0 Urine Protein 1+ H Urine Glucose (UA) Negative Urine Ketones 2+ H Urine Blood Negative Urine Nitrite Negative Urine Bilirubin Negative Urine Urobilinogen Negative Urine RBC 3 Ur Epithelial Cells Rare Urine Bacteria Rare Urine Mucus Rare Opiates Screen Negative Methadone Screen Negative Barbiturate Screen Negative Phencyclidine Screen Negative Ur Amphetamines Screen Negative MDMA (Ecstasy) Screen Negative Benzodiazepines Screen Negative Cocaine Screen Negative U Marijuana (THC) Screen Negative Alcohol, Quantitative 01/09/17 01/09/17 02:30 02:28 PT with INR 10.10 INR 0.92 PTT (Actin FS) 29.0 Sodium Potassium Chloride Carbon Dioxide Anion Gap BUN Creatinine Creat Clearance w eGFR Random Glucose Calcium Total Bilirubin AST ALT Alkaline Phosphatase Total Protein Albumin Total Amylase Lipase Urine Color Urine Appearance Urine pH Urine Protein Urine Glucose (UA) Urine Ketones Urine Blood Urine Nitrite Urine Bilirubin Urine Urobilinogen Urine RBC Ur Epithelial Cells Urine Bacteria Urine Mucus Opiates Screen Methadone Screen Barbiturate Screen Phencyclidine Screen Ur Amphetamines Screen MDMA (Ecstasy) Screen Benzodiazepines Screen Cocaine Screen U Marijuana (THC) Screen Alcohol, Quantitative 9.0 H* 01/09/17 02:30 RBC 4.40 MCV 95.2 MCHC 33.6 RDW 16.7 H MPV 8.3 D Neutrophils % 70.6 D Lymphocytes % 19.5 D Monocytes % 8.4 Eosinophils % 0.7 Basophils % 0.8 - Medications Given in the ED: ED Medications Discontinued Medications Generic Name Dose Route Start Last Admin Trade Name Freq PRN Reason Stop Dose Admin Chlordiazepoxide HCl 50 mg 01/09/17 06:24 01/09/17 06:37 Librium - PO 01/09/17 06:25 50 mg ONCE ONE Administration Sodium Chloride 1,000 mls @ 1,000 mls/hr 01/09/17 02:27 01/09/17 02:40 Normal Saline - IV 01/09/17 03:26 1,000 mls/hr ASDIR STA Administration Sodium Chloride 1,000 mls @ 1,000 mls/hr 01/09/17 06:29 01/09/17 06:37 Normal Saline - IV 01/09/17 07:28 1,000 mls/hr ASDIR STA Administration Lorazepam 2 mg 01/09/17 02:31 01/09/17 02:53 Ativan Injection - IVPUSH 01/09/17 02:32 2 mg ONCE ONE Administration Lorazepam 1 mg 01/09/17 06:20 01/09/17 06:37 Ativan Injection - IVPUSH 01/09/17 06:21 1 mg ONCE ONE Administration Ondansetron HCl 4 mg 01/09/17 02:27 01/09/17 02:45 Zofran Injection IVPB 01/09/17 02:28 4 mg ONCE ONE Administration Medical Decision Making - Medical Decision Making 01/09/17 08:19 Patient is awake, ambulatory and agrees to alcohol detoxification program. [facility] contacted, bed available. Dr. Hough informed of patient, accepts for admission. Family at bedside. As patient was mildly tachycardic (100's) patient was given one dose of Librium (50 mg) and discharged. *DC/Admit/Observation/Transfer Diagnosis at time of Disposition: Alcohol withdrawal, Alcohol intoxication - Discharge Dispostion Disposition: HOME Condition at time of disposition: Good - Referrals - Patient Instructions Printed Discharge Instructions: DI for Delirium Tremens, DI for Alcohol Abuse - Post Discharge Activity
[2017-01-09 08:49] VITALS: BP 124/72; PULSE 109; TEMP 98.1
[2017-01-09 10:08] LABS: URINE LEUK ESTERASE Negative (NEGATIVE)
--- NOTE | 2017-01-09 12:03 | EKG ---
Test Reason : Blood Pressure : / mmHG Vent. Rate : 105 BPM Atrial Rate : 105 BPM P-R Int : 174 ms QRS Dur : 082 ms QT Int : 374 ms P-R-T Axes : 059 015 061 degrees QTc Int : 494 ms SINUS TACHYCARDIA SEPTAL INFARCT (CITED ON OR BEFORE 18-APR-2014) ABNORMAL ECG WHEN COMPARED WITH ECG OF 18-APR-2014 17:55, QT HAS LENGTHENED Confirmed by SUNIL SHEPARD MD ([id number]) on 01/09/2017 12:03:15 PM Referred By: Confirmed By:SUNIL SHEPARD MD
== END | disposition home or self-care (01) ==
LOC: JER 02:10
PROC: 3E033NZ Introduction of Analgesics, Hypnotics, Sedatives into Peripheral Vein, Percutaneous Approach (ICD-10-PCS; principal; 2017-01-09)
PROC: 3E033GC Introduction of Other Therapeutic Substance into Peripheral Vein, Percutaneous Approach (ICD-10-PCS; 2017-01-09)
PROC: 3E0337Z Introduction of Electrolytic and Water Balance Substance into Peripheral Vein, Percutaneous Approach (ICD-10-PCS; 2017-01-09)
DX: F10.239 Alcohol dependence with withdrawal, unspecified (principal); F17.210 Nicotine dependence, cigarettes, uncomplicated
CPT/HCPCS: 36415; 74177-TC; 80053; 80307; 81003; 81015; 82150; 83690; 85025; 85610; 85730; 93005; 93010; 99284-25

== ENCOUNTER 2017-01-12 16:08 | Inpatient (IN) | payer SELFPAY ==
[2017-01-12 16:22] VITALS: BMI 25.8
--- NOTE | 2017-01-12 16:45 | PDOC ---
Attending Attestation - Resident Resident Name: Jensen Richardsel - ED Attending Attestation I have performed the following: I have examined & evaluated the patient, The case was reviewed & discussed with the resident, I agree w/resident's findings & plan, Exceptions are as noted - HPI HPI: 01/12/17 17:23 51 yo male just discharged from [facility] and sent here when it was noticed his left ankle was swollen and painful -radiograph reveals tib/fib fracture - Physicial Exam PE: 01/12/17 17:25 51 yo male p/w swollen left leg, calf is swollen and there are scattered ulcers on swollen L leg HEENT no signs of acute head trauma lungs cta b/l cvs [id number] abd soft,nontender extremities left calf swollen and entire left foot is swollen with scattered blisters ,good Dt and PT pulses neuro alert and oriented x 3 - Medical Decision Making 01/12/17 17:28 will r/o DVT in left leg,obtain duplex doppler.labs,case discussed w Dr Frey 01/12/17 18:41 no DVT in left leg/ labs wnl
--- NOTE | 2017-01-12 17:14 | PDOC ---
History of Present Illness - History of Present Illness Initial Comments: 01/12/17 17:04 The patient is a 51 year old male with a history of ETOH abuse who presents for evaluation of left ankle pain. The patient was recently discharged from [facility] detox today and sent to the ED for evaluation of worsening left ankle pain. He states that 1 week ago he twisted his ankle with immediate pain, but has continued to be ambulatory since that time. He reports worsening pain and swelling over the past week prompting his presentation to the ED today. Upon reviewing imaging done at [facility], ankle plain films demonstrate a bimalleolar fracture with minimal displacement of the distal fibula. He denies fevers, chills, SOB, chest pain, abdominal pain, or other symptoms. <Michele Richards - Last Filed: 01/12/17 18:44> <Agueda Graves - Last Filed: 01/12/17 20:02> - General Chief Complaint: Wound Stated Complaint: LEFT LEG WOUND Time Seen by Provider: 01/12/17 16:24 Past History - Past Medical History Anemia: No Asthma: No Cancer: No Cardiac Disorders: No CVA: No COPD: No CHF: No Dementia: No Diabetes: No GI Disorders: No Disorders: No HTN: No Hypercholesterolemia: No Kidney Stones: No Liver Disease: No Seizures: No Thyroid Disease: No - Surgical History Abdominal Surgery: No Appendectomy: No Cardiac Surgery: No Cholecystectomy: No Lung Surgery: No Neurologic Surgery: No Orthopedic Surgery: No - Reproductive History Testicular Surgery: No - Suicide/Smoking/Psychosocial Hx Smoking Status: Yes Smoking History: Current every day smoker Number of Cigarettes Smoked Daily: 10 If you are a former smoker, when did you quit?: REFUSED BOOKLET Information on smoking cessation initiated: Yes 'Breaking Loose' booklet given: 01/09/17 Hx Alcohol Use: Yes Drug/Substance Use Hx: Yes Substance Use Type: Alcohol Hx Substance Use Treatment: No (dwi in past???) <Michele Richards - Last Filed: 01/12/17 18:44> <Agueda Graves - Last Filed: 01/12/17 20:02> - Past Medical History Allergies/Adverse Reactions: Allergies Allergy/AdvReac Type Severity Reaction Status Date / Time No Known Allergies Allergy Verified 01/09/17 12:45 Home Medications: Ambulatory Orders NK [No Known Home Medication] 01/23/15 Review of Systems - Review of Systems Comments:: 01/12/17 17:08 Constitutional: No fevers, chills, fatigue, malaise HEENT: No Rhinorrhea, nasal congestion, visual changes Cardiovascular: No chest pain, syncope, palpitations, lightheadedness Respiratory: No Cough, SOB, Hemoptysis, Gastrointestinal: No Abdominal pain, Nausea, Vomiting, Constipation, Diarrhea, Genitourinary: No Dysuria, Frequency, Urgency, Hesitancy, Hematuria, Flank pain Musculoskeletal: Left Ankle Pain. No Myalgia, arthralgia Skin: No rashes, bruising, pallor Neurologic: No Headache, Dizziness, Numbness, Weakness, or Tingling <Michele Richards - Last Filed: 01/12/17 18:44> *Physical Exam - Vital Signs Last Vital Signs Temp Pulse Resp BP Pulse Ox 97.8 F 86 18 147/85 97 01/12/17 16:11 01/12/17 16:11 01/12/17 16:11 01/12/17 16:11 01/12/17 16:11 - Physical Exam Comments: 01/12/17 17:09 General Appearance: Nourished. No Apparent Distress HEENT: EOMI, KATHERINE. No Pharyngeal Erythema, Tonsillar Exudate, Tonsillar Erythema Neck: No Cervical Lymphadenopathy Respiratory/Chest: Lungs Clear, Normal Breath Sounds. No Crackles, Rales, Rhonchi, Wheezing Cardiovascular: Regular Rhythm, Regular Rate. No Murmur, Gallops, Rubs Gastrointestinal/Abdominal: Normal Bowel Sounds, Soft. No Guarding, Rebound, Tenderness Musculoskeletal: No CVA Tenderness Extremity: 2+ pitting edema to the left lower extremity. Tenderness to palpation of the lateral malleolus of the left ankle. Warmth and mild erythema noted as well. Normal Capillary Refill Integumentary: Normal Color, Dry, Warm Neurologic: Fully Oriented, Alert, Normal Mood/Affect, Normal Response, <Michele Richards - Last Filed: 01/12/17 18:44> - Vital Signs Last Vital Signs Temp Pulse Resp BP Pulse Ox 97.8 F 86 18 147/85 97 01/12/17 16:11 01/12/17 16:11 01/12/17 16:11 01/12/17 16:11 01/12/17 16:11 <Agueda Graves Cleo - Last Filed: 01/12/17 20:02> ED Treatment Course - LABORATORY CBC & Chemistry Diagram: 01/12/17 17:06 01/12/17 17:06 <Michele Richards - Last Filed: 01/12/17 18:44> - LABORATORY CBC & Chemistry Diagram: 01/12/17 17:06 01/12/17 17:06 - ADDITIONAL ORDERS Additional order review: Laboratory Results 01/12/17 17:06 Sodium 139 Potassium 4.3 Chloride 103 Carbon Dioxide 31 D Anion Gap 5 L BUN 6 L D Creatinine 0.7 D Creat Clearance w eGFR > 60 Random Glucose 87 Calcium 9.1 Total Bilirubin 0.3 D AST 24 D ALT 30 Alkaline Phosphatase 64 D Total Protein 6.7 D Albumin 3.5 01/12/17 17:06 RBC 3.91 L MCV 95.9 MCHC 33.5 RDW 16.2 H MPV 7.7 Neutrophils % 44.6 D Lymphocytes % 37.6 D Monocytes % 15.0 H Eosinophils % 2.6 D Basophils % 0.2 - Medications Given in the ED: ED Medications Discontinued Medications Generic Name Dose Route Start Last Admin Trade Name Freq PRN Reason Stop Dose Admin Clindamycin Phosphate 50 mls @ 100 mls/hr 01/12/17 17:46 01/12/17 18:16 Cleocin 600 Mg Premix Ivpb - IVPB 01/12/17 18:15 100 mls/hr ONCE ONE Administration <Gunnar Gravesa Cleo - Last Filed: 01/12/17 20:02> Medical Decision Making - Medical Decision Making 01/12/17 17:16 The patient is a 51 year old male with a history of ETOH abuse who presents for evaluation of left ankle pain. Differential includes but is not limited to: DVT , Cellulitis, Fracture. The patient's imaging demonstrates a fracture and given the patient's edema, we will consult with Ortho. Given the erythema and warmth of the patient's ankle, it is likely that patient has an overlying cellulitis as well. We will also obtain a DVT US given the patient's significant lower extremity edema and fracture. He will likely require admission for IV antibiotics and further management. 01/12/17 18:44 DVT US was negative for DVT. CBC, cmp are unremarkable. We have discussed the case with Dr. Frey who accepted the patient for admission for further management. The results and plan were discussed with the patient who voiced understanding and is agreeable. <Michele Richards - Last Filed: 01/12/17 18:44> *DC/Admit/Observation/Transfer - Discharge Dispostion Admit: Yes <Michele Richards - Last Filed: 01/12/17 18:44> <Agueda Graves - Last Filed: 01/12/17 20:02> Diagnosis at time of Disposition: Ankle fracture, bimalleolar, closed Qualifiers: Encounter type: initial encounter Laterality: left Qualified Code(s): S82.842A - Displaced bimalleolar fracture of left lower leg, initial encounter for closed fracture Cellulitis Qualifiers: Site of cellulitis: extremity Site of cellulitis of extremity: lower extremity Laterality: left Qualified Code(s): L03.116 - Cellulitis of left lower limb - Discharge Dispostion Condition at time of disposition: Stable - Referrals
[2017-01-12 17:15] LABS: BASOPHIL 0.2 % (0-2.0); EOSINOPHIL 2.6 % (0-4.5); MCH 32.1 pg (25.7-33.7); MCHC 33.5 g/dl (32.0-35.9); MEAN CELL VOLUME 95.9 fl (80-96); MEAN PLT VOLUME 7.7 fl (7.5-11.1); NEUTROPHILS 44.6 % (42.8-82.8); PLATELET COUNT 286 K/MM3 (134-434); RDW 16.2 % (11.9-15.9); WHITE BLOOD COUNT 4.1 K/mm3 (4.0-10.0)
[2017-01-12] MEDS ORDERED: CLINDAMYCIN 600MG PREMIX IVPB 50 ML IVPB ONE (17:46)
[2017-01-12 17:48] LABS: ALBUMIN 3.5 g/dl (3.4-5.0); ALK PHOS 64 U/L (45-117); ANION GAP 5 (8-16); BILIRUBIN,TOTAL 0.3 mg/dL (0.2-1.0); CALCIUM 9.1 mg/dL (8.5-10.1); CO2 31 mmol/L (21-32); CREATININE 0.7 mg/dL (0.7-1.3); GLUCOSE,RANDOM 87 mg/dL (74-106); SGOT/AST 24 U/L (15-37); SGPT/ALT 30 U/L (12-78); TOT PROT 6.7 g/dl (6.4-8.2)
--- NOTE | 2017-01-12 19:52 | CON.ID ---
Consult Consult Specialty:: infectious diseases Reason for Consultation:: cellulitis of the foot - History of Present Illness Chief Complaint: jeremiah and swelling of the left foot with blebs History of Present Illness: 1 year old male with a history of ETOH abuse who presents for evaluation of left ankle pain. The patient was recently discharged from [facility] detox today and sent to the ED for evaluation of worsening left ankle pain. He states that 1 week ago he twisted his ankle with immediate pain, but has continued to be ambulatory since that time. He reports worsening pain and swelling over the past week prompting his presentation to the ED today. Upon reviewing imaging done at [facility], ankle plain films demonstrate a bimalleolar fracture with minimal displacement of the distal fibula. He denies fevers, chills, SOB, chest pain, abdominal pain, or other symptoms. patient has noticed increased swelling of the foot and now comes in with discoloration and multiple blebs formation on the foot severe pain and swelling - History Source History Provided By: Patient Limitations to Obtaining History: No Limitations - Alcohol/Substance Use Hx Alcohol Use: Yes - Smoking History Smoking history: Current every day smoker Aproximately how many cigarettes per day: 10 If you are a former smoker, when did you quit?: REFUSED BOOKLET Home Medications - Allergies Allergies/Adverse Reactions: Allergies Allergy/AdvReac Type Severity Reaction Status Date / Time No Known Allergies Allergy Verified 01/09/17 12:45 - Home Medications Home Medications: Ambulatory Orders NK [No Known Home Medication] 01/23/15 Review of Systems - Review of Systems Constitutional: reports: Other Eyes: reports: No Symptoms HENT: reports: No Symptoms Neck: reports: No Symptoms Cardiovascular: reports: No Symptoms Respiratory: reports: No Symptoms Gastrointestinal: reports: No Symptoms Genitourinary: reports: No Symptoms Musculoskeletal: reports: Extremity Pain, Joint Pain, Joint Swelling Integumentary: reports: Blister, Bruising, Change in Color, Erythema Neurological: reports: No Symptoms Endocrine: reports: No Symptoms Hematology/Lymphatic: reports: No Symptoms Psychiatric: reports: No Symptoms Physical Exam Vital Signs: Vital Signs Temperature 97.8 F 01/12/17 16:11 Pulse Rate 86 01/12/17 16:11 Respiratory Rate 18 01/12/17 16:11 Blood Pressure 147/85 01/12/17 16:11 O2 Sat by Pulse Oximetry (%) 97 01/12/17 16:11 Constitutional: Yes: Well Nourished, Calm, Moderate Distress Eyes: Yes: Conjunctiva Clear HENT: Yes: Atraumatic Neck: Yes: Supple Cardiovascular: Yes: Regular Rate and Rhythm Respiratory: Yes: Regular, CTA Bilaterally Gastrointestinal: Yes: Normal Bowel Sounds, Soft Musculoskeletal: Yes: Other Extremities: Yes: Deformity (left leg/foot), Erythema Integumentary: Yes: Erythema, Other (blisters,change in color) Wound/Incision: Yes: Open to air, Other (superficial wounds) Neurological: Yes: Alert, Oriented Psychiatric: Yes: Alert, Oriented Assessment/Plan Problem List - Problems (1) Ankle fracture, bimalleolar, closed Code(s): S82.843A - DISPLACED BIMALLEOLAR FRACTURE OF UNSP LOWER LEG, INIT Qualifiers: Encounter type: initial encounter Laterality: left Qualified Code(s ): S82.842A - Displaced bimalleolar fracture of left lower leg, initial encounter for closed fracture; S82.842A - Displaced bimalleolar fracture of left lower leg, initial encounter for closed fracture (2) Cellulitis Code(s): L03.90 - CELLULITIS, UNSPECIFIED Qualifiers: Site of cellulitis: extremity Site of cellulitis of extremity: lower extremity Laterality: left Qualified Code(s): L03.116 - Cellulitis of left lower limb; L03.116 - Cellulitis of left lower limb plan iv abx ordered stat imaging studies to r/o any gas or deep infection ortho hydration rest as per primary
--- NOTE | 2017-01-12 20:03 | PDOC ---
*Physical Exam - Vital Signs Last Vital Signs Temp Pulse Resp BP Pulse Ox 97.8 F 86 18 147/85 97 01/12/17 16:11 01/12/17 16:11 01/12/17 16:11 01/12/17 16:11 01/12/17 16:11 ED Treatment Course - LABORATORY CBC & Chemistry Diagram: 01/12/17 17:06 01/12/17 17:06 - ADDITIONAL ORDERS Additional order review: Laboratory Results 01/12/17 17:06 Sodium 139 Potassium 4.3 Chloride 103 Carbon Dioxide 31 D Anion Gap 5 L BUN 6 L D Creatinine 0.7 D Creat Clearance w eGFR > 60 Random Glucose 87 Calcium 9.1 Total Bilirubin 0.3 D AST 24 D ALT 30 Alkaline Phosphatase 64 D Total Protein 6.7 D Albumin 3.5 01/12/17 17:06 RBC 3.91 L MCV 95.9 MCHC 33.5 RDW 16.2 H MPV 7.7 Neutrophils % 44.6 D Lymphocytes % 37.6 D Monocytes % 15.0 H Eosinophils % 2.6 D Basophils % 0.2 - Medications Given in the ED: ED Medications Discontinued Medications Generic Name Dose Route Start Last Admin Trade Name Freq PRN Reason Stop Dose Admin Clindamycin Phosphate 50 mls @ 100 mls/hr 01/12/17 17:46 01/12/17 18:16 Cleocin 600 Mg Premix Ivpb - IVPB 01/12/17 18:15 100 mls/hr ONCE ONE Administration *DC/Admit/Observation/Transfer Diagnosis at time of Disposition: Ankle fracture, bimalleolar, closed Qualifiers: Encounter type: initial encounter Laterality: left Qualified Code(s): S82.842A - Displaced bimalleolar fracture of left lower leg, initial encounter for closed fracture Cellulitis Qualifiers: Site of cellulitis: extremity Site of cellulitis of extremity: lower extremity Laterality: left Qualified Code(s): L03.116 - Cellulitis of left lower limb - Discharge Dispostion Admit: Yes
--- NOTE | 2017-01-12 20:41 | HP ---
Admitting History and Physical - Primary Care Physician PCP: Pascale Frey - Admission History of Present Illness: 51 year old male with a history of ETOH abuse who presents for evaluation of left ankle pain. The patient was discharged from [facility] detox today and sent to the ED for evaluation of worsening left ankle pain. He states that 1 week ago he twisted his ankle with immediate pain, but has continued to be ambulatory since that time. Upon reviewing imaging done at [facility], ankle plain films demonstrate a bimalleolar fracture with minimal displacement of the distal fibula. He denies fevers, chills, SOB, chest pain, abdominal pain, or other symptoms. - Smoking History Smoking history: Current every day smoker Aproximately how many cigarettes per day: 10 If you are a former smoker, when did you quit?: REFUSED BOOKLET - Alcohol/Substance Use Hx Alcohol Use: Yes Home Medications - Allergies Allergies/Adverse Reactions: Allergies Allergy/AdvReac Type Severity Reaction Status Date / Time No Known Allergies Allergy Verified 01/09/17 12:45 - Home Medications Home Medications: Ambulatory Orders NK [No Known Home Medication] 01/23/15 Physical Examination Vital Signs: Vital Signs Temperature 97.8 F 01/12/17 16:11 Pulse Rate 86 01/12/17 16:11 Respiratory Rate 18 01/12/17 16:11 Blood Pressure 147/85 01/12/17 16:11 O2 Sat by Pulse Oximetry (%) 97 01/12/17 16:11 Constitutional: Yes: No Distress HENT: Yes: Atraumatic Neck: Yes: Supple Cardiovascular: Yes: Regular Rate and Rhythm Respiratory: Yes: CTA Bilaterally Gastrointestinal: Yes: Normal Bowel Sounds Extremities: Yes: Other (llex cellulitis, swelling) Edema: LLE: 1+ (and bubbles) Neurological: Yes: Alert, Oriented Problem List - Problems (1) Ankle fracture, bimalleolar, closed Assessment/Plan: will get ortho consult prn pain meds Code(s): S82.843A - DISPLACED BIMALLEOLAR FRACTURE OF UNSP LOWER LEG, INIT Qualifiers: Encounter type: initial encounter Laterality: left Qualified Code(s ): S82.842A - Displaced bimalleolar fracture of left lower leg, initial encounter for closed fracture; S82.842A - Displaced bimalleolar fracture of left lower leg, initial encounter for closed fracture (2) Cellulitis Assessment/Plan: on iv abx id has seen pt ct ankle ordered.. r/o gas in the tissues Code(s): L03.90 - CELLULITIS, UNSPECIFIED Qualifiers: Site of cellulitis: extremity Site of cellulitis of extremity: lower extremity Laterality: left Qualified Code(s): L03.116 - Cellulitis of left lower limb; L03.116 - Cellulitis of left lower limb Assessment/Plan Laboratory Tests 01/12/17 01/12/17 17:06 17:06 WBC 4.1 D RBC 3.91 L Hgb 12.6 D Hct 37.5 MCV 95.9 MCH 32.1 MCHC 33.5 RDW 16.2 H Plt Count 286 D MPV 7.7 Neutrophils % 44.6 D Lymphocytes % 37.6 D Monocytes % 15.0 H Eosinophils % 2.6 D Basophils % 0.2 Platelet Comment Few giant plts Sodium 139 Potassium 4.3 Chloride 103 Carbon Dioxide 31 D Anion Gap 5 L BUN 6 L D Creatinine 0.7 D Creat Clearance w eGFR > 60 Random Glucose 87 Calcium 9.1 Total Bilirubin 0.3 D AST 24 D ALT 30 Alkaline Phosphatase 64 D Total Protein 6.7 D Albumin 3.5 Active Medications Generic Name Dose Route Start Last Admin Trade Name Freq PRN Reason Stop Dose Admin Heparin Sodium (Porcine) 5,000 unit 01/12/17 22:00 Heparin - SQ BID [facility] Vancomycin HCl 1,250 mg/ 250 mls @ 166.667 mls/hr 01/12/17 20:00 Dextrose IVPB DAILY ERLINDA Protocol Piperacillin Sod/Tazobactam 50 mls @ 100 mls/hr 01/12/17 20:00 Sod 3.375 gm/ Dextrose IVPB Q8H-IV ERLINDA Protocol
[2017-01-12] MEDS: PIPERACILLIN/TAZOB 3.375 GM 3.375 GM in DEXTROSE 5%-WATER - 50 ML IVPB SCH (20:56)
[2017-01-12] MEDS: VANCOMYCIN 1,250 MG in DEXTROSE 5%-WATER - 250 ML IVPB SCH (21:25)
[2017-01-12] MEDS ORDERED: ACETAMINOPHEN 325 MG TABLET (FP) PO PRN (22:21)
[2017-01-12] MEDS: HEPARIN NA (PORCINE) 5,000 UNITS/ML 1ML VIAL SQ SCH (22:28)
[2017-01-12] MEDS: NICOTINE 21 MG/24 HOURS TOPICAL PATCH TD SCH (22:29)
[2017-01-12] MEDS: ACETAMINOPHEN 325 MG TABLET (FP) PO PRN (22:30)
[2017-01-13] MEDS ORDERED: DEXTROSE 5%-WATER - 50 ML IVPB ONE ×3 (01:03→17:55)
[2017-01-13] MEDS ORDERED: PIPERACILLIN/TAZOBACTAM 3.375 GM VIAL IVPB ONE ×3 (01:03→17:55)
[2017-01-13] MEDS: PIPERACILLIN/TAZOB 3.375 GM 3.375 GM in DEXTROSE 5%-WATER - 50 ML IVPB SCH ×3 (01:05→17:58)
[2017-01-13 08:41] LABS: BASOPHIL 2.5 % (0-2.0); EOSINOPHIL 3.4 % (0-4.5); MCH 31.8 pg (25.7-33.7); MCHC 33.1 g/dl (32.0-35.9); MEAN CELL VOLUME 96.2 fl (80-96); MEAN PLT VOLUME 7.7 fl (7.5-11.1); NEUTROPHILS 42.9 % (42.8-82.8); PLATELET COUNT 320 K/MM3 (134-434); RDW 16.4 % (11.9-15.9); WHITE BLOOD COUNT 4.2 K/mm3 (4.0-10.0)
[2017-01-13 09:05] LABS: ALBUMIN 3.7 g/dl (3.4-5.0); ANION GAP 10 (8-16); CALCIUM 9.1 mg/dL (8.5-10.1); CO2 30 mmol/L (21-32); GLUCOSE,RANDOM 83 mg/dL (74-106)
[2017-01-13 09:10] LABS: ALK PHOS 69 U/L (45-117); BILIRUBIN,TOTAL 0.5 mg/dL (0.2-1.0); CREATININE 0.6 mg/dL (0.7-1.3); SGOT/AST 24 U/L (15-37); SGPT/ALT 30 U/L (12-78); TOT PROT 7.3 g/dl (6.4-8.2)
[2017-01-13] MEDS: HEPARIN NA (PORCINE) 5,000 UNITS/ML 1ML VIAL SQ SCH ×2 (09:28→21:04)
[2017-01-13] MEDS: VANCOMYCIN 1,250 MG in DEXTROSE 5%-WATER - 250 ML IVPB SCH (09:29)
[2017-01-13] MEDS: amLODIPine BESYLATE 5 MG TABLET (FP) PO SCH (09:30)
--- NOTE | 2017-01-13 13:49 | CON.ORTH ---
Consult Reason for Consultation:: left ankle fx - Alcohol/Substance Use Hx Alcohol Use: Yes - Smoking History Smoking history: Current every day smoker Aproximately how many cigarettes per day: 10 If you are a former smoker, when did you quit?: REFUSED BOOKLET Home Medications - Allergies Allergies/Adverse Reactions: Allergies Allergy/AdvReac Type Severity Reaction Status Date / Time No Known Allergies Allergy Verified 01/09/17 12:45 - Home Medications Home Medications: Ambulatory Orders NK [No Known Home Medication] 01/23/15 Physical Exam for Ortho Vital Signs: Vital Signs Temperature 97.6 F 01/13/17 07:00 Pulse Rate 79 01/13/17 07:00 Respiratory Rate 20 01/13/17 07:00 Blood Pressure 161/107 01/13/17 07:00 O2 Sat by Pulse Oximetry (%) 97 01/12/17 16:11 Labs: CBC, BMP 01/13/17 07:15 01/13/17 07:15 - Lower Extremity Ankle: Yes: Left, Assymetrical, Limited ROM, Pain, Swelling, Tenderness, Other ( + open fracture blisters with bloody and serous drainage, significant swelling of foot and ankle, decr rom, nvi) Imaging - Results X-ray: Report Reviewed, Image Reviewed Cat Scan: Report Reviewed, Image Reviewed Assessment/Plan 51 year old male with a history of ETOH abuse who presents for evaluation of left ankle pain. The patient was recently discharged from [facility] today and sent to the ED for evaluation of worsening left ankle pain. He states that 1 week ago he twisted his ankle with immediate pain, but has continued to be ambulatory since that time. xrays and CT scan revealed fx a/p Left ankle trimalleolar fx Risks and benefits were d/w pt in detail recommended surgical treatment, pt will think about options as he is unsure Also given medical status, poor compliance, and significant swelling surgical intervention will be difficult Pt will think about options Needs strict elevation IF surgery is to be done swelling will need to be much less and wounds stop draining d/w with Dr. Grewal
--- NOTE | 2017-01-13 13:58 | PN ---
Progress Note, Physician History of Present Illness: patient c/o of pain swelling still present - Current Medication List Current Medications: Active Medications Acetaminophen (Tylenol -) 650 mg PO Q6H PRN PRN Reason: FEVER OR PAIN Last Admin: 01/12/17 22:30 Dose: 650 mg Amlodipine Besylate (Norvasc -) 5 mg PO DAILY [facility] Last Admin: 01/13/17 09:30 Dose: 5 mg Heparin Sodium (Porcine) (Heparin -) 5,000 unit SQ BID [facility] Last Admin: 01/13/17 09:28 Dose: 5,000 unit Vancomycin HCl 1,250 mg/ (Dextrose) 250 mls @ 166.667 mls/hr IVPB DAILY [facility] PRN Reason: Protocol Last Admin: 01/13/17 09:29 Dose: 166.667 mls/hr Piperacillin Sod/Tazobactam (Sod 3.375 gm/ Dextrose) 50 mls @ 100 mls/hr IVPB Q8H-IV [facility] PRN Reason: Protocol Last Admin: 01/13/17 09:28 Dose: 100 mls/hr Nicotine (Nicoderm Patch -) 21 mg TD HS [facility] Last Admin: 01/12/17 22:29 Dose: 21 mg - Objective Vital Signs: Vital Signs Temperature 97.9 F 01/13/17 08:00 Pulse Rate 84 01/13/17 09:15 Respiratory Rate 20 01/13/17 09:15 Blood Pressure 141/85 01/13/17 09:15 O2 Sat by Pulse Oximetry (%) 97 01/13/17 08:00 Constitutional: Yes: No Distress, Calm Cardiovascular: Yes: Regular Rate and Rhythm Respiratory: Yes: Regular, CTA Bilaterally Gastrointestinal: Yes: Normal Bowel Sounds, Soft Musculoskeletal: Yes: Other Extremities: Yes: Deformity, Erythema Integumentary: Yes: Erythema, Other (blisters) Neurological: Yes: Alert, Oriented Psychiatric: Yes: Alert, Oriented Labs: CBC, BMP 01/13/17 07:15 01/13/17 07:15 - ....Imaging Cat Scan: Report Reviewed, Image Reviewed Assessment/Plan Problem List - Problems (1) Ankle fracture, bimalleolar, closed Code(s): S82.843A - DISPLACED BIMALLEOLAR FRACTURE OF UNSP LOWER LEG, INIT Qualifiers: Encounter type: initial encounter Laterality: left Qualified Code(s ): S82.842A - Displaced bimalleolar fracture of left lower leg, initial encounter for closed fracture; S82.842A - Displaced bimalleolar fracture of left lower leg, initial encounter for closed fracture (2) Cellulitis Code(s): L03.90 - CELLULITIS, UNSPECIFIED Qualifiers: Site of cellulitis: extremity Site of cellulitis of extremity: lower extremity Laterality: left Qualified Code(s): L03.116 - Cellulitis of left lower limb; L03.116 - Cellulitis of left lower limb plan continue abx patient will need surgery as per ortho rest as per primary
--- NOTE | 2017-01-13 17:32 | PN ---
Progress Note, Physician History of Present Illness: feeling good - Current Medication List Current Medications: Active Medications Acetaminophen (Tylenol -) 650 mg PO Q6H PRN PRN Reason: FEVER OR PAIN Last Admin: 01/12/17 22:30 Dose: 650 mg Amlodipine Besylate (Norvasc -) 5 mg PO DAILY [facility] Last Admin: 01/13/17 09:30 Dose: 5 mg Heparin Sodium (Porcine) (Heparin -) 5,000 unit SQ BID [facility] Last Admin: 01/13/17 09:28 Dose: 5,000 unit Vancomycin HCl 1,250 mg/ (Dextrose) 250 mls @ 166.667 mls/hr IVPB DAILY [facility] PRN Reason: Protocol Last Admin: 01/13/17 09:29 Dose: 166.667 mls/hr Piperacillin Sod/Tazobactam (Sod 3.375 gm/ Dextrose) 50 mls @ 100 mls/hr IVPB Q8H-IV [facility] PRN Reason: Protocol Last Admin: 01/13/17 09:28 Dose: 100 mls/hr Nicotine (Nicoderm Patch -) 21 mg TD HS [facility] Last Admin: 01/12/17 22:29 Dose: 21 mg - Objective Vital Signs: Vital Signs Temperature 98 F 01/13/17 15:33 Pulse Rate 82 01/13/17 15:33 Respiratory Rate 18 01/13/17 15:33 Blood Pressure 156/104 01/13/17 15:33 O2 Sat by Pulse Oximetry (%) 97 01/13/17 08:00 Constitutional: Yes: No Distress HENT: Yes: Atraumatic Neck: Yes: Supple Cardiovascular: Yes: Regular Rate and Rhythm Respiratory: Yes: CTA Bilaterally Gastrointestinal: Yes: Normal Bowel Sounds Extremities: Yes: Other (llex cellulitis) Edema: Yes Edema: LLE: 2+ Neurological: Yes: Alert, Oriented Labs: CBC, BMP 01/13/17 07:15 01/13/17 07:15 Problem List - Problems (1) Cellulitis Code(s): L03.90 - CELLULITIS, UNSPECIFIED Qualifiers: Site of cellulitis: extremity Site of cellulitis of extremity: lower extremity Laterality: left Qualified Code(s): L03.116 - Cellulitis of left lower limb; L03.116 - Cellulitis of left lower limb (2) Trimalleolar fracture of left ankle Assessment/Plan: surgery consult reviewed pt thinking about it Code(s): S82.852A - DISPLACED TRIMALLEOLAR FRACTURE OF LEFT LOWER LEG, INIT
[2017-01-13] MEDS: NICOTINE 21 MG/24 HOURS TOPICAL PATCH TD SCH (21:05)
[2017-01-13] MEDS: ACETAMINOPHEN 325 MG TABLET (FP) PO PRN (21:09)
[2017-01-14] MEDS ORDERED: DEXTROSE 5%-WATER - 50 ML IVPB ONE ×3 (00:50→17:52)
[2017-01-14] MEDS ORDERED: PIPERACILLIN/TAZOBACTAM 3.375 GM VIAL IVPB ONE ×3 (00:50→17:52)
[2017-01-14] MEDS: PIPERACILLIN/TAZOB 3.375 GM 3.375 GM in DEXTROSE 5%-WATER - 50 ML IVPB SCH ×3 (01:36→18:01)
[2017-01-14] MEDS: ACETAMINOPHEN 325 MG TABLET (FP) PO PRN ×2 (05:38→21:17)
[2017-01-14] MEDS: HEPARIN NA (PORCINE) 5,000 UNITS/ML 1ML VIAL SQ SCH ×2 (10:27→21:06)
[2017-01-14] MEDS: amLODIPine BESYLATE 5 MG TABLET (FP) PO SCH (10:27)
--- NOTE | 2017-01-14 11:59 | PN ---
Progress Note (short form) - Note Progress Note: Pt seen, appears comfortable, no c/o pain. Left ankle still quite swollen. From discussions had yesterday our impression is that he does not want surgery here at [place]. He might opt for no surgery at all. He is amenable to being put into a boot, discharged, and will follow up at [facility] or [facility]. Our team discussed with him the potential risks, complications, alternatives, and benefits of surgery vs nosurgical treatment.
[2017-01-14] MEDS: VANCOMYCIN 1,250 MG in DEXTROSE 5%-WATER - 250 ML IVPB SCH (13:37)
--- NOTE | 2017-01-14 13:44 | PN ---
Progress Note, Physician History of Present Illness: patient leg starting to improve swelling better still on fence for surgery - Current Medication List Current Medications: Active Medications Acetaminophen (Tylenol -) 650 mg PO Q6H PRN PRN Reason: FEVER OR PAIN Last Admin: 01/14/17 05:38 Dose: 650 mg Amlodipine Besylate (Norvasc -) 5 mg PO DAILY [facility] Last Admin: 01/14/17 10:27 Dose: 5 mg Heparin Sodium (Porcine) (Heparin -) 5,000 unit SQ BID [facility] Last Admin: 01/14/17 10:27 Dose: 5,000 unit Vancomycin HCl 1,250 mg/ (Dextrose) 250 mls @ 166.667 mls/hr IVPB DAILY [facility] PRN Reason: Protocol Last Admin: 01/14/17 13:37 Dose: 166.667 mls/hr Piperacillin Sod/Tazobactam (Sod 3.375 gm/ Dextrose) 50 mls @ 100 mls/hr IVPB Q8H-IV [facility] PRN Reason: Protocol Last Admin: 01/14/17 10:27 Dose: 100 mls/hr Nicotine (Nicoderm Patch -) 21 mg TD HS [facility] Last Admin: 01/13/17 21:05 Dose: 21 mg - Objective Vital Signs: Vital Signs Temperature 98.2 F 01/14/17 10:00 Pulse Rate 76 01/14/17 10:00 Respiratory Rate 20 01/14/17 10:00 Blood Pressure 142/97 01/14/17 10:00 O2 Sat by Pulse Oximetry (%) 96 01/13/17 20:22 Constitutional: Yes: No Distress, Calm Cardiovascular: Yes: Regular Rate and Rhythm Respiratory: Yes: Regular, CTA Bilaterally Gastrointestinal: Yes: Normal Bowel Sounds, Soft Musculoskeletal: Yes: WNL Extremities: Yes: Other (swelling of the foot better) Integumentary: Yes: Erythema, Other (blebs better) Wound/Incision: Yes: Open to air, Other Neurological: Yes: Alert, Oriented Psychiatric: Yes: Alert, Oriented Labs: CBC, BMP 01/13/17 07:15 01/13/17 07:15 Assessment/Plan Problem List - Problems (1) Ankle fracture, bimalleolar, closed Code(s): S82.843A - DISPLACED BIMALLEOLAR FRACTURE OF UNSP LOWER LEG, INIT Qualifiers: Encounter type: initial encounter Laterality: left Qualified Code(s ): S82.842A - Displaced bimalleolar fracture of left lower leg, initial encounter for closed fracture; S82.842A - Displaced bimalleolar fracture of left lower leg, initial encounter for closed fracture (2) Cellulitis Code(s): L03.90 - CELLULITIS, UNSPECIFIED Qualifiers: Site of cellulitis: extremity Site of cellulitis of extremity: lower extremity Laterality: left Qualified Code(s): L03.116 - Cellulitis of left lower limb; L03.116 - Cellulitis of left lower limb plan continue abx await patients final decision on surgery
--- NOTE | 2017-01-14 16:56 | PN ---
Progress Note, Physician History of Present Illness: feeling good - Current Medication List Current Medications: Active Medications Acetaminophen (Tylenol -) 650 mg PO Q6H PRN PRN Reason: FEVER OR PAIN Last Admin: 01/14/17 05:38 Dose: 650 mg Amlodipine Besylate (Norvasc -) 5 mg PO DAILY [facility] Last Admin: 01/14/17 10:27 Dose: 5 mg Heparin Sodium (Porcine) (Heparin -) 5,000 unit SQ BID [facility] Last Admin: 01/14/17 10:27 Dose: 5,000 unit Vancomycin HCl 1,250 mg/ (Dextrose) 250 mls @ 166.667 mls/hr IVPB DAILY [facility] PRN Reason: Protocol Last Admin: 01/14/17 13:37 Dose: 166.667 mls/hr Piperacillin Sod/Tazobactam (Sod 3.375 gm/ Dextrose) 50 mls @ 100 mls/hr IVPB Q8H-IV [facility] PRN Reason: Protocol Last Admin: 01/14/17 10:27 Dose: 100 mls/hr Nicotine (Nicoderm Patch -) 21 mg TD HS [facility] Last Admin: 01/13/17 21:05 Dose: 21 mg - Objective Vital Signs: Vital Signs Temperature 99.6 F 01/14/17 14:54 Pulse Rate 64 01/14/17 14:54 Respiratory Rate 18 01/14/17 14:54 Blood Pressure 111/62 01/14/17 14:54 O2 Sat by Pulse Oximetry (%) 96 01/13/17 20:22 Constitutional: Yes: No Distress HENT: Yes: Atraumatic Neck: Yes: Supple Cardiovascular: Yes: Regular Rate and Rhythm Respiratory: Yes: CTA Bilaterally Gastrointestinal: Yes: Normal Bowel Sounds Extremities: Yes: Other (cellulitis llex) Edema: LLE: 2+ Neurological: Yes: Alert, Oriented Labs: CBC, BMP 01/13/17 07:15 01/13/17 07:15 Problem List - Problems (1) Cellulitis Assessment/Plan: on iv abx ct done report seen ortho on board Code(s): L03.90 - CELLULITIS, UNSPECIFIED Qualifiers: Site of cellulitis: extremity Site of cellulitis of extremity: lower extremity Laterality: left Qualified Code(s): L03.116 - Cellulitis of left lower limb; L03.116 - Cellulitis of left lower limb (2) Trimalleolar fracture of left ankle Assessment/Plan: surgery consult reviewed pt thinking about it Code(s): S82.852A - DISPLACED TRIMALLEOLAR FRACTURE OF LEFT LOWER LEG, INIT
[2017-01-14] MEDS: NICOTINE 21 MG/24 HOURS TOPICAL PATCH TD SCH (21:06)
[2017-01-15] MEDS ORDERED: DEXTROSE 5%-WATER - 50 ML IVPB ONE ×2 (01:29→09:05)
[2017-01-15] MEDS ORDERED: PIPERACILLIN/TAZOBACTAM 3.375 GM VIAL IVPB ONE ×2 (01:29→09:04)
[2017-01-15] MEDS: PIPERACILLIN/TAZOB 3.375 GM 3.375 GM in DEXTROSE 5%-WATER - 50 ML IVPB SCH ×3 (01:33→17:02)
[2017-01-15] MEDS: HEPARIN NA (PORCINE) 5,000 UNITS/ML 1ML VIAL SQ SCH ×2 (09:14→21:53)
[2017-01-15] MEDS: amLODIPine BESYLATE 5 MG TABLET (FP) PO SCH (09:14)
--- NOTE | 2017-01-15 10:18 | PN ---
Progress Note (short form) - Note Progress Note: Ortho Pt seen and examined s/p left ankle trimal fx wounds improving, decr swelling, incr rom, calf soft, nt nvi a/p Risks and benefits were d/w pt in detail regarding surgical vs conservative tx Pt defers surgery at this time was placed in a boot NWB LLE with crutches/walker strict elevation may d/c from ortho pov pt will f/u as outpt at [facility] clinic-d/w with pt d/w Dr. Grewal
[2017-01-15] MEDS: VANCOMYCIN 1,250 MG in DEXTROSE 5%-WATER - 250 ML IVPB SCH (10:38)
--- NOTE | 2017-01-15 14:20 | PN ---
Progress Note, Physician History of Present Illness: patient in boot still no decision about surgery - Current Medication List Current Medications: Active Medications Acetaminophen (Tylenol -) 650 mg PO Q6H PRN PRN Reason: FEVER OR PAIN Last Admin: 01/14/17 21:17 Dose: 650 mg Amlodipine Besylate (Norvasc -) 5 mg PO DAILY [facility] Last Admin: 01/15/17 09:14 Dose: 5 mg Heparin Sodium (Porcine) (Heparin -) 5,000 unit SQ BID [facility] Last Admin: 01/15/17 09:14 Dose: 5,000 unit Vancomycin HCl 1,250 mg/ (Dextrose) 250 mls @ 166.667 mls/hr IVPB DAILY [facility] PRN Reason: Protocol Last Admin: 01/15/17 10:38 Dose: 166.667 mls/hr Piperacillin Sod/Tazobactam (Sod 3.375 gm/ Dextrose) 50 mls @ 100 mls/hr IVPB Q8H-IV [facility] PRN Reason: Protocol Last Admin: 01/15/17 09:15 Dose: 100 mls/hr Nicotine (Nicoderm Patch -) 21 mg TD HS [facility] Last Admin: 01/14/17 21:06 Dose: 21 mg - Objective Vital Signs: Vital Signs Temperature 98.2 F 01/15/17 08:00 Pulse Rate 80 01/15/17 08:00 Respiratory Rate 20 01/15/17 08:00 Blood Pressure 151/84 01/15/17 08:00 O2 Sat by Pulse Oximetry (%) 96 01/15/17 08:00 Constitutional: Yes: No Distress, Calm Cardiovascular: Yes: Regular Rate and Rhythm Respiratory: Yes: Regular, CTA Bilaterally Musculoskeletal: Yes: Other Extremities: Yes: Other Neurological: Yes: Alert, Oriented Psychiatric: Yes: Alert Labs: CBC, BMP 01/13/17 07:15 01/13/17 07:15 Assessment/Plan Problem List - Problems (1) Ankle fracture, bimalleolar, closed Code(s): S82.843A - DISPLACED BIMALLEOLAR FRACTURE OF UNSP LOWER LEG, INIT Qualifiers: Encounter type: initial encounter Laterality: left Qualified Code(s ): S82.842A - Displaced bimalleolar fracture of left lower leg, initial encounter for closed fracture; S82.842A - Displaced bimalleolar fracture of left lower leg, initial encounter for closed fracture (2) Cellulitis Code(s): L03.90 - CELLULITIS, UNSPECIFIED Qualifiers: Site of cellulitis: extremity Site of cellulitis of extremity: lower extremity Laterality: left Qualified Code(s): L03.116 - Cellulitis of left lower limb; L03.116 - Cellulitis of left lower limb plan continue abx continue leg elevation
--- NOTE | 2017-01-15 15:59 | PN ---
Progress Note, Physician History of Present Illness: feeling good - Current Medication List Current Medications: Active Medications Acetaminophen (Tylenol -) 650 mg PO Q6H PRN PRN Reason: FEVER OR PAIN Last Admin: 01/14/17 21:17 Dose: 650 mg Amlodipine Besylate (Norvasc -) 5 mg PO DAILY [facility] Last Admin: 01/15/17 09:14 Dose: 5 mg Heparin Sodium (Porcine) (Heparin -) 5,000 unit SQ BID [facility] Last Admin: 01/15/17 09:14 Dose: 5,000 unit Vancomycin HCl 1,250 mg/ (Dextrose) 250 mls @ 166.667 mls/hr IVPB DAILY [facility] PRN Reason: Protocol Last Admin: 01/15/17 10:38 Dose: 166.667 mls/hr Piperacillin Sod/Tazobactam (Sod 3.375 gm/ Dextrose) 50 mls @ 100 mls/hr IVPB Q8H-IV [facility] PRN Reason: Protocol Last Admin: 01/15/17 09:15 Dose: 100 mls/hr Nicotine (Nicoderm Patch -) 21 mg TD HS [facility] Last Admin: 01/14/17 21:06 Dose: 21 mg - Objective Vital Signs: Vital Signs Temperature 98.2 F 01/15/17 08:00 Pulse Rate 80 01/15/17 08:00 Respiratory Rate 20 01/15/17 08:00 Blood Pressure 151/84 01/15/17 08:00 O2 Sat by Pulse Oximetry (%) 96 01/15/17 08:00 Constitutional: Yes: No Distress HENT: Yes: Atraumatic Neck: Yes: Supple Cardiovascular: Yes: Regular Rate and Rhythm Respiratory: Yes: CTA Bilaterally Gastrointestinal: Yes: Normal Bowel Sounds Extremities: Yes: Other (llex cellulitis) Edema: LLE: 2+ Neurological: Yes: Alert, Oriented Labs: CBC, BMP 01/13/17 07:15 01/13/17 07:15 Problem List - Problems (1) Cellulitis Assessment/Plan: on iv abx ct done report seen ortho on board Code(s): L03.90 - CELLULITIS, UNSPECIFIED Qualifiers: Site of cellulitis: extremity Site of cellulitis of extremity: lower extremity Laterality: left Qualified Code(s): L03.116 - Cellulitis of left lower limb; L03.116 - Cellulitis of left lower limb (2) Trimalleolar fracture of left ankle Assessment/Plan: surgery consult reviewed pt thinking about it Code(s): S82.852A - DISPLACED TRIMALLEOLAR FRACTURE OF LEFT LOWER LEG, INIT
[2017-01-15] MEDS: NICOTINE 21 MG/24 HOURS TOPICAL PATCH TD SCH (21:53)
[2017-01-15] MEDS: ACETAMINOPHEN 325 MG TABLET (FP) PO PRN (22:05)
[2017-01-16] MEDS ORDERED: PT OWN MED DRAWER 7, Y5N ONE ×2 (02:56→09:14)
[2017-01-16] MEDS: PIPERACILLIN/TAZOB 3.375 GM 3.375 GM in DEXTROSE 5%-WATER - 50 ML IVPB SCH ×2 (03:02→09:22)
[2017-01-16] MEDS: amLODIPine BESYLATE 5 MG TABLET (FP) PO SCH (09:22)
[2017-01-16] MEDS: HEPARIN NA (PORCINE) 5,000 UNITS/ML 1ML VIAL SQ SCH ×2 (09:22→22:09)
--- NOTE | 2017-01-16 10:18 | PN ---
Progress Note (short form) - Note Progress Note: Ortho Pt seen and examined s/p left ankle trimal fx wounds improving, decr swelling, incr rom, calf soft, nt nvi a/p NO surgical intervention at this time Pt defers surgery continue boot NWB LLE with crutches/walker PT eval strict elevation may d/c from ortho pov pt will f/u as outpt at [facility] clinic-d/w with pt d/w Dr. Grewal
[2017-01-16] MEDS: VANCOMYCIN 1,250 MG in DEXTROSE 5%-WATER - 250 ML IVPB SCH (11:37)
--- NOTE | 2017-01-16 12:45 | PN ---
Progress Note, Physician History of Present Illness: ortho note noted seems infection improving patients leg in boot now - Current Medication List Current Medications: Active Medications Acetaminophen (Tylenol -) 650 mg PO Q6H PRN PRN Reason: FEVER OR PAIN Last Admin: 01/15/17 22:05 Dose: 650 mg Amlodipine Besylate (Norvasc -) 5 mg PO DAILY [facility] Last Admin: 01/16/17 09:22 Dose: 5 mg Heparin Sodium (Porcine) (Heparin -) 5,000 unit SQ BID [facility] Last Admin: 01/16/17 09:22 Dose: 5,000 unit Vancomycin HCl 1,250 mg/ (Dextrose) 250 mls @ 166.667 mls/hr IVPB DAILY [facility] PRN Reason: Protocol Last Admin: 01/16/17 11:37 Dose: 166.667 mls/hr Piperacillin/Tazobactam/Dextrose (Zosyn 3.375gm Ivpb (Premix)) 50 mls @ 100 mls /hr IVPB Q8H-IV [facility] PRN Reason: Protocol Stop: 01/19/17 10:29 Nicotine (Nicoderm Patch -) 21 mg TD HS [facility] Last Admin: 01/15/17 21:53 Dose: 21 mg - Objective Vital Signs: Vital Signs Temperature 97.9 F 01/16/17 08:00 Pulse Rate 81 01/16/17 08:00 Respiratory Rate 20 01/16/17 08:00 Blood Pressure 154/94 01/16/17 08:00 O2 Sat by Pulse Oximetry (%) 96 01/16/17 08:00 Constitutional: Yes: No Distress, Calm Cardiovascular: Yes: Regular Rate and Rhythm Respiratory: Yes: Regular, CTA Bilaterally Musculoskeletal: Yes: WNL Extremities: Yes: Other Wound/Incision: Yes: Other Neurological: Yes: Alert, Oriented, Other (boot on the left foot) Psychiatric: Yes: Alert, Oriented Labs: CBC, BMP 01/13/17 07:15 01/13/17 07:15 Assessment/Plan Problem List - Problems (1) Ankle fracture, bimalleolar, closed Code(s): S82.843A - DISPLACED BIMALLEOLAR FRACTURE OF UNSP LOWER LEG, INIT Qualifiers: Encounter type: initial encounter Laterality: left Qualified Code(s ): S82.842A - Displaced bimalleolar fracture of left lower leg, initial encounter for closed fracture; S82.842A - Displaced bimalleolar fracture of left lower leg, initial encounter for closed fracture (2) Cellulitis Code(s): L03.90 - CELLULITIS, UNSPECIFIED Qualifiers: Site of cellulitis: extremity Site of cellulitis of extremity: lower extremity Laterality: left Qualified Code(s): L03.116 - Cellulitis of left lower limb; L03.116 - Cellulitis of left lower limb plan continue abx continue leg elevation will see how the leg looks by thursday follow vanco levels ordered for tomorrow
[2017-01-16] MEDS: PIPERACILLIN/TAZOB 3.375 GM 50 ML IVPB SCH (17:09)
--- NOTE | 2017-01-16 18:25 | PN ---
Progress Note, Physician History of Present Illness: feeling good - Current Medication List Current Medications: Active Medications Acetaminophen (Tylenol -) 650 mg PO Q6H PRN PRN Reason: FEVER OR PAIN Last Admin: 01/15/17 22:05 Dose: 650 mg Amlodipine Besylate (Norvasc -) 5 mg PO DAILY [facility] Last Admin: 01/16/17 09:22 Dose: 5 mg Heparin Sodium (Porcine) (Heparin -) 5,000 unit SQ BID [facility] Last Admin: 01/16/17 09:22 Dose: 5,000 unit Vancomycin HCl 1,250 mg/ (Dextrose) 250 mls @ 166.667 mls/hr IVPB DAILY [facility] PRN Reason: Protocol Last Admin: 01/16/17 11:37 Dose: 166.667 mls/hr Piperacillin/Tazobactam/Dextrose (Zosyn 3.375gm Ivpb (Premix)) 50 mls @ 100 mls /hr IVPB Q8H-IV [facility] PRN Reason: Protocol Stop: 01/19/17 10:29 Last Admin: 01/16/17 17:09 Dose: 100 mls/hr Nicotine (Nicoderm Patch -) 21 mg TD HS [facility] Last Admin: 01/15/17 21:53 Dose: 21 mg - Objective Vital Signs: Vital Signs Temperature 98.2 F 01/16/17 15:28 Pulse Rate 86 01/16/17 15:28 Respiratory Rate 19 01/16/17 15:28 Blood Pressure 142/94 01/16/17 15:28 O2 Sat by Pulse Oximetry (%) 96 01/16/17 08:00 Constitutional: Yes: No Distress HENT: Yes: Atraumatic Neck: Yes: Supple Cardiovascular: Yes: Regular Rate and Rhythm Respiratory: Yes: CTA Bilaterally Gastrointestinal: Yes: Normal Bowel Sounds Extremities: Yes: Other (llex in boot) Neurological: Yes: Alert, Oriented Labs: CBC, BMP 01/13/17 07:15 01/13/17 07:15 Problem List - Problems (1) Cellulitis Assessment/Plan: on iv abx need to know how many more days of iv abx from ID Code(s): L03.90 - CELLULITIS, UNSPECIFIED Qualifiers: Site of cellulitis: extremity Site of cellulitis of extremity: lower extremity Laterality: left Qualified Code(s): L03.116 - Cellulitis of left lower limb; L03.116 - Cellulitis of left lower limb (2) Trimalleolar fracture of left ankle Assessment/Plan: in a boot now per ortho Code(s): S82.852A - DISPLACED TRIMALLEOLAR FRACTURE OF LEFT LOWER LEG, INIT
[2017-01-16] MEDS: NICOTINE 21 MG/24 HOURS TOPICAL PATCH TD SCH (22:09)
[2017-01-17] MEDS: PIPERACILLIN/TAZOB 3.375 GM 50 ML IVPB SCH ×3 (02:51→17:47)
[2017-01-17 07:21] LABS: MCH 31.2 pg (25.7-33.7); MCHC 32.4 g/dl (32.0-35.9); MEAN CELL VOLUME 96.3 fl (80-96); MEAN PLT VOLUME 7.6 fl (7.5-11.1); PLATELET COUNT 435 K/MM3 (134-434); RDW 17.1 % (11.9-15.9); WHITE BLOOD COUNT 5.5 K/mm3 (4.0-10.0)
[2017-01-17 08:07] LABS: ALBUMIN 3.6 g/dl (3.4-5.0); ALK PHOS 64 U/L (45-117); ANION GAP 11 (8-16); BILIRUBIN,TOTAL 0.3 mg/dL (0.2-1.0); CALCIUM 9.2 mg/dL (8.5-10.1); CO2 28 mmol/L (21-32); CREATININE 0.8 mg/dL (0.7-1.3); GLUCOSE,RANDOM 84 mg/dL (74-106); SGOT/AST 16 U/L (15-37); SGPT/ALT 27 U/L (12-78); TOT PROT 7.4 g/dl (6.4-8.2)
[2017-01-17] MEDS ORDERED: PT OWN MED DRAWER 7, Y5N ONE ×2 (09:31→20:53)
[2017-01-17 10:20] LABS: PLATELET COMMENT2 NO CLOTTING DETECTED; PLATELET ESTIMATE SLT INCREASED (NORMAL)
[2017-01-17 10:21] LABS: BASOPHIL (MANUAL) 2 % (0-2.0); NUCLEATED RED BLOOD CELL 2 % (0-0); SMUDGE CELLS FEW; TOTAL CELLS COUNTED 100
[2017-01-17] MEDS: VANCOMYCIN 1,250 MG in DEXTROSE 5%-WATER - 250 ML IVPB SCH ×2 (10:49→22:19)
[2017-01-17] MEDS: amLODIPine BESYLATE 5 MG TABLET (FP) PO SCH (10:49)
[2017-01-17] MEDS: HEPARIN NA (PORCINE) 5,000 UNITS/ML 1ML VIAL SQ SCH ×2 (10:49→22:18)
--- NOTE | 2017-01-17 11:51 | PN ---
Progress Note, Physician History of Present Illness: feeling good - Current Medication List Current Medications: Active Medications Acetaminophen (Tylenol -) 650 mg PO Q6H PRN PRN Reason: FEVER OR PAIN Last Admin: 01/15/17 22:05 Dose: 650 mg Amlodipine Besylate (Norvasc -) 5 mg PO DAILY [facility] Last Admin: 01/17/17 10:49 Dose: 5 mg Heparin Sodium (Porcine) (Heparin -) 5,000 unit SQ BID [facility] Last Admin: 01/17/17 10:49 Dose: 5,000 unit Vancomycin HCl 1,250 mg/ (Dextrose) 250 mls @ 166.667 mls/hr IVPB DAILY [facility] PRN Reason: Protocol Last Admin: 01/17/17 10:49 Dose: 166.667 mls/hr Piperacillin/Tazobactam/Dextrose (Zosyn 3.375gm Ivpb (Premix)) 50 mls @ 100 mls /hr IVPB Q8H-IV [facility] PRN Reason: Protocol Stop: 01/19/17 10:29 Last Admin: 01/17/17 10:48 Dose: 100 mls/hr Nicotine (Nicoderm Patch -) 21 mg TD HS [facility] Last Admin: 01/16/17 22:09 Dose: 21 mg - Objective Vital Signs: Vital Signs Temperature 98.1 F 01/17/17 08:00 Pulse Rate 86 01/17/17 08:00 Respiratory Rate 18 01/17/17 08:00 Blood Pressure 139/86 01/17/17 08:00 O2 Sat by Pulse Oximetry (%) 96 01/16/17 21:00 Constitutional: Yes: No Distress HENT: Yes: Atraumatic Neck: Yes: Supple Cardiovascular: Yes: Regular Rate and Rhythm Respiratory: Yes: CTA Bilaterally Gastrointestinal: Yes: Normal Bowel Sounds Extremities: Yes: Other (llex in boot) Neurological: Yes: Alert, Oriented Labs: CBC, BMP 01/17/17 06:30 01/17/17 06:30 Problem List - Problems (1) Cellulitis Assessment/Plan: on iv abx need to know how many more days of iv abx from ID Code(s): L03.90 - CELLULITIS, UNSPECIFIED Qualifiers: Site of cellulitis: extremity Site of cellulitis of extremity: lower extremity Laterality: left Qualified Code(s): L03.116 - Cellulitis of left lower limb; L03.116 - Cellulitis of left lower limb (2) Trimalleolar fracture of left ankle Assessment/Plan: in a boot now per ortho Code(s): S82.852A - DISPLACED TRIMALLEOLAR FRACTURE OF LEFT LOWER LEG, INIT
--- NOTE | 2017-01-17 13:56 | PN ---
Progress Note, Physician Chief Complaint: ID progress note History of Present Illness: Pt seen and examined. Chart/labs reviewed. Events noted. Pt states he is feeling better. LLE Pain controlled with tylenol. Denies fever/chills/rash/CP/ dyspnea/dysuria. - Current Medication List Current Medications: Active Medications Acetaminophen (Tylenol -) 650 mg PO Q6H PRN PRN Reason: FEVER OR PAIN Last Admin: 01/15/17 22:05 Dose: 650 mg Amlodipine Besylate (Norvasc -) 5 mg PO DAILY [facility] Last Admin: 01/17/17 10:49 Dose: 5 mg Heparin Sodium (Porcine) (Heparin -) 5,000 unit SQ BID [facility] Last Admin: 01/17/17 10:49 Dose: 5,000 unit Vancomycin HCl 1,250 mg/ (Dextrose) 250 mls @ 166.667 mls/hr IVPB DAILY [facility] PRN Reason: Protocol Last Admin: 01/17/17 10:49 Dose: 166.667 mls/hr Piperacillin/Tazobactam/Dextrose (Zosyn 3.375gm Ivpb (Premix)) 50 mls @ 100 mls /hr IVPB Q8H-IV ERLINDA PRN Reason: Protocol Stop: 01/19/17 10:29 Last Admin: 01/17/17 10:48 Dose: 100 mls/hr Nicotine (Nicoderm Patch -) 21 mg TD HS [facility] Last Admin: 01/16/17 22:09 Dose: 21 mg - Objective Vital Signs: Vital Signs Temperature 98.1 F 01/17/17 08:00 Pulse Rate 86 01/17/17 08:00 Respiratory Rate 18 01/17/17 08:00 Blood Pressure 139/86 01/17/17 08:00 O2 Sat by Pulse Oximetry (%) 97 01/17/17 09:00 Constitutional: Yes: No Distress, Calm. No: Well Nourished, Anxious, Ashen, Cachectic, Diaphoresis, Mild Distress, Moderate Distress, Severe Distress, Obese , Pallor, Poor Hygeine, Thin, Other Eyes: Yes: WNL. No: Conjunctiva Clear, EOM Intact, Cataracts, Diplopia, Occular Prosthesis, PERRL, Ptosis, Sclera Icterus, Tearing, Other HENT: Yes: WNL. No: Atraumatic, Normocephalic, Drooling, Epistaxis, Hoarseness , Nasal Congestion, Pharyngeal Erythema, Rhinnorhea, Thrush, Tonsillar Exudate, Other Neck: Yes: Supple Cardiovascular: Yes: Regular Rate and Rhythm. No: WNL, Bradycardia, Tachycardia , Pulse Irregular, Bruit, JVD, Gallop, Murmur, Rub, S1, S2, S3, S4, Varicosities , Other Respiratory: Yes: CTA Bilaterally. No: WNL, Regular, Accessory Muscle Use, Bradypnea, Matias-Prieto, Cough, Diminished, Dullness, Hyperresonant, Intubated , Kussmaul, Mechanically Ventilated, On BiPap, On Nasal O2, On Venti-Mask, Orthopnea, Poor Air Entry, Rales, Rhonchi, SOB, SOB on Exertion, Stridor, Tachypnea, Wheezes, Other Gastrointestinal: Yes: Normal Bowel Sounds, Soft. No: WNL, Abdomen, Obese, Ascites, Distention, Hematemesis, Hemorrhoids, Hepatomegaly, Hernia, Hyperactive Bowel Sounds, Hypoactive Bowel Sounds, Melena, Palpable Mass, Pulsatile Mass, Rectal Bleeding, Splenomegaly, Tenderness, Tenderness, Epigastrium, Tenderness, Rebound, Vomiting, Other Genitourinary: Yes: WNL. No: Anuria, Bladder Distention, CVA Tenderness - Left , CVA Tenderness - Right, Ch Present, Hematuria, Incontinence, Menses Present , Oliguria, Polyuria, , Scrotal Edema, Urethral Discharge, Vaginal Bleeding, Vaginal Discharge, Other Breast(s): No: WNL, Left, Right, Breast Implants, Dimpling, Discharge from Nipple, Gynecomastia, Mass, Nipple Inversion, Skin Changes, Other Musculoskeletal: Yes: Joint Stiffness, Joint Swelling (Lt) Extremities: Yes: Erythema (Lt foot/LLE erythema/warmth, no tenderness) Integumentary: Yes: Erythema (LLE) Wound/Incision: Yes: Dressing Dry and Intact Neurological: Yes: Alert, Oriented Labs: CBC, BMP 01/17/17 06:30 01/17/17 06:30 Vancomycin trough - 3.5 (subtherapeutic) - ....Imaging Cat Scan: Report Reviewed Problem List - Problems (1) Cellulitis Code(s): L03.90 - CELLULITIS, UNSPECIFIED Qualifiers: Site of cellulitis: extremity Site of cellulitis of extremity: lower extremity Laterality: left Qualified Code(s): L03.116 - Cellulitis of left lower limb; L03.116 - Cellulitis of left lower limb (2) Trimalleolar fracture of left ankle Code(s): S82.852A - DISPLACED TRIMALLEOLAR FRACTURE OF LEFT LOWER LEG, INIT (3) Alcohol dependence with uncomplicated withdrawal Code(s): F10.230 - ALCOHOL DEPENDENCE WITH WITHDRAWAL, UNCOMPLICATED Assessment/Plan LLE Cellulitis - still with warmth/erythema, blistering resolving - continue Zosyn - increase Vancomycin to 1250 mg IV BID - monitor renal function - orthopedic follow up will re-evaluate to see continued improvement of cellulitis
[2017-01-17] MEDS: NICOTINE 21 MG/24 HOURS TOPICAL PATCH TD SCH (22:18)
[2017-01-18] MEDS: PIPERACILLIN/TAZOB 3.375 GM 50 ML IVPB SCH ×3 (03:55→17:28)
[2017-01-18] MEDS ORDERED: PT OWN MED DRAWER 7, Y5N ONE (10:18)
[2017-01-18] MEDS: HEPARIN NA (PORCINE) 5,000 UNITS/ML 1ML VIAL SQ SCH ×2 (10:21→21:17)
[2017-01-18] MEDS: amLODIPine BESYLATE 5 MG TABLET (FP) PO SCH (10:22)
[2017-01-18] MEDS: VANCOMYCIN 1,250 MG in DEXTROSE 5%-WATER - 250 ML IVPB SCH ×2 (11:00→21:18)
--- NOTE | 2017-01-18 13:49 | PN ---
Progress Note, Physician Chief Complaint: I.D. Progress note History of Present Illness: Patient seen and examined. Offers no specific complaints. Pain is controlled. Pt states he feels better. - Current Medication List Current Medications: Active Medications Acetaminophen (Tylenol -) 650 mg PO Q6H PRN PRN Reason: FEVER OR PAIN Last Admin: 01/15/17 22:05 Dose: 650 mg Amlodipine Besylate (Norvasc -) 5 mg PO DAILY [facility] Last Admin: 01/18/17 10:22 Dose: 5 mg Heparin Sodium (Porcine) (Heparin -) 5,000 unit SQ BID [facility] Last Admin: 01/18/17 10:21 Dose: 5,000 unit Piperacillin/Tazobactam/Dextrose (Zosyn 3.375gm Ivpb (Premix)) 50 mls @ 100 mls /hr IVPB Q8H-IV ERLINDA PRN Reason: Protocol Stop: 01/19/17 10:29 Last Admin: 01/18/17 10:21 Dose: 100 mls/hr Vancomycin HCl 1,250 mg/ (Dextrose) 250 mls @ 250 mls/hr IVPB BID [facility] PRN Reason: Protocol Last Admin: 01/18/17 11:00 Dose: 250 mls/hr Nicotine (Nicoderm Patch -) 21 mg TD HS [facility] Last Admin: 01/17/17 22:18 Dose: 21 mg - Objective Vital Signs: Vital Signs Temperature 98.1 F 01/18/17 06:00 Pulse Rate 80 01/18/17 06:00 Respiratory Rate 16 01/18/17 10:00 Blood Pressure 127/76 01/18/17 06:00 O2 Sat by Pulse Oximetry (%) 95 01/18/17 10:00 Constitutional: Yes: No Distress, Calm Neck: Yes: Supple Cardiovascular: Yes: Regular Rate and Rhythm Respiratory: Yes: CTA Bilaterally Gastrointestinal: Yes: Normal Bowel Sounds, Soft Extremities: Yes: Other (Left ankle edema/tenderness, currently in boot/ immobilized) Neurological: Yes: Alert, Oriented Psychiatric: Yes: Alert, Oriented Labs: CBC, BMP 01/17/17 06:30 01/17/17 06:30 Problem List - Problems (1) Cellulitis Code(s): L03.90 - CELLULITIS, UNSPECIFIED Qualifiers: Site of cellulitis: extremity Site of cellulitis of extremity: lower extremity Laterality: left Qualified Code(s): L03.116 - Cellulitis of left lower limb; L03.116 - Cellulitis of left lower limb (2) Trimalleolar fracture of left ankle Code(s): S82.852A - DISPLACED TRIMALLEOLAR FRACTURE OF LEFT LOWER LEG, INIT (3) Alcohol dependence with uncomplicated withdrawal Code(s): F10.230 - ALCOHOL DEPENDENCE WITH WITHDRAWAL, UNCOMPLICATED Assessment/Plan LLE cellulitis Lt ankle fracture Alcohol abuse - continue current antibiotics - ordered Vancomycin Trough prior to a.m. dose - being followed by Orthopedics
--- NOTE | 2017-01-18 14:46 | PN ---
Progress Note, Physician History of Present Illness: feeling good - Current Medication List Current Medications: Active Medications Acetaminophen (Tylenol -) 650 mg PO Q6H PRN PRN Reason: FEVER OR PAIN Last Admin: 01/15/17 22:05 Dose: 650 mg Amlodipine Besylate (Norvasc -) 5 mg PO DAILY [facility] Last Admin: 01/18/17 10:22 Dose: 5 mg Heparin Sodium (Porcine) (Heparin -) 5,000 unit SQ BID [facility] Last Admin: 01/18/17 10:21 Dose: 5,000 unit Piperacillin/Tazobactam/Dextrose (Zosyn 3.375gm Ivpb (Premix)) 50 mls @ 100 mls /hr IVPB Q8H-IV [facility] PRN Reason: Protocol Stop: 01/19/17 10:29 Last Admin: 01/18/17 10:21 Dose: 100 mls/hr Vancomycin HCl 1,250 mg/ (Dextrose) 250 mls @ 250 mls/hr IVPB BID [facility] PRN Reason: Protocol Last Admin: 01/18/17 11:00 Dose: 250 mls/hr Nicotine (Nicoderm Patch -) 21 mg TD HS [facility] Last Admin: 01/17/17 22:18 Dose: 21 mg - Objective Vital Signs: Vital Signs Temperature 98.5 F 01/18/17 14:24 Pulse Rate 83 01/18/17 14:24 Respiratory Rate 18 01/18/17 14:24 Blood Pressure 146/92 01/18/17 14:24 O2 Sat by Pulse Oximetry (%) 95 01/18/17 10:00 Constitutional: Yes: No Distress HENT: Yes: Atraumatic Neck: Yes: Supple Cardiovascular: Yes: Regular Rate and Rhythm Respiratory: Yes: CTA Bilaterally Gastrointestinal: Yes: Normal Bowel Sounds Extremities: Yes: Other (llex in boot) Neurological: Yes: Alert, Oriented Labs: CBC, BMP 01/17/17 06:30 01/17/17 06:30 Problem List - Problems (1) Cellulitis Assessment/Plan: on iv abx need to know how many more days of iv abx from ID Code(s): L03.90 - CELLULITIS, UNSPECIFIED Qualifiers: Site of cellulitis: extremity Site of cellulitis of extremity: lower extremity Laterality: left Qualified Code(s): L03.116 - Cellulitis of left lower limb; L03.116 - Cellulitis of left lower limb (2) Trimalleolar fracture of left ankle Assessment/Plan: in a boot now per ortho Code(s): S82.852A - DISPLACED TRIMALLEOLAR FRACTURE OF LEFT LOWER LEG, INIT
[2017-01-18] MEDS: NICOTINE 21 MG/24 HOURS TOPICAL PATCH TD SCH (21:18)
[2017-01-19] MEDS: ACETAMINOPHEN 325 MG TABLET (FP) PO PRN (00:56)
[2017-01-19] MEDS: PIPERACILLIN/TAZOB 3.375 GM 50 ML IVPB SCH ×2 (02:54→10:26)
--- NOTE | 2017-01-19 08:56 | PN ---
Progress Note (short form) - Note Progress Note: Ortho Pt seen and examined s/p left ankle trimal fx decr swelling, decr pain, incr rom, calf soft, nt nvi a/p change IV abx to PO as per ID NO surgical intervention at this time Pt defers surgery continue boot NWB LLE with crutches strict elevation may d/c from ortho pov pt will f/u as outpt at [facility] clinic-d/w with pt d/w Dr. Grewal
[2017-01-19] MEDS: HEPARIN NA (PORCINE) 5,000 UNITS/ML 1ML VIAL SQ SCH (10:23)
[2017-01-19] MEDS: amLODIPine BESYLATE 5 MG TABLET (FP) PO SCH (10:23)
[2017-01-19] MEDS: VANCOMYCIN 1,250 MG in DEXTROSE 5%-WATER - 250 ML IVPB SCH (12:49)
--- NOTE | 2017-01-19 12:52 | PN ---
Progress Note, Physician History of Present Illness: ortho note noted removed boot leg looking much better still with some erythema - Current Medication List Current Medications: Active Medications Acetaminophen (Tylenol -) 650 mg PO Q6H PRN PRN Reason: FEVER OR PAIN Last Admin: 01/19/17 00:56 Dose: 650 mg Amlodipine Besylate (Norvasc -) 5 mg PO DAILY [facility] Last Admin: 01/19/17 10:23 Dose: 5 mg Heparin Sodium (Porcine) (Heparin -) 5,000 unit SQ BID [facility] Last Admin: 01/19/17 10:23 Dose: 5,000 unit Nicotine (Nicoderm Patch -) 21 mg TD HS [facility] Last Admin: 01/18/17 21:18 Dose: 21 mg - Objective Vital Signs: Vital Signs Temperature 97.8 F 01/19/17 08:00 Pulse Rate 80 01/19/17 08:00 Respiratory Rate 18 01/19/17 08:00 Blood Pressure 151/91 01/19/17 08:00 O2 Sat by Pulse Oximetry (%) 97 01/19/17 09:00 Constitutional: Yes: No Distress, Calm Cardiovascular: Yes: Regular Rate and Rhythm Respiratory: Yes: Regular, CTA Bilaterally Gastrointestinal: Yes: Normal Bowel Sounds, Soft Musculoskeletal: Yes: Other Extremities: Yes: Erythema (resolving) Wound/Incision: Yes: Dressing Removed Neurological: Yes: Alert, Oriented Psychiatric: Yes: Alert, Oriented Labs: CBC, BMP 01/17/17 06:30 01/17/17 06:30 Assessment/Plan Problem List - Problems (1) Ankle fracture, bimalleolar, closed Code(s): S82.843A - DISPLACED BIMALLEOLAR FRACTURE OF UNSP LOWER LEG, INIT Qualifiers: Encounter type: initial encounter Laterality: left Qualified Code(s ): S82.842A - Displaced bimalleolar fracture of left lower leg, initial encounter for closed fracture; S82.842A - Displaced bimalleolar fracture of left lower leg, initial encounter for closed fracture (2) Cellulitis Code(s): L03.90 - CELLULITIS, UNSPECIFIED Qualifiers: Site of cellulitis: extremity Site of cellulitis of extremity: lower extremity Laterality: left Qualified Code(s): L03.116 - Cellulitis of left lower limb; L03.116 - Cellulitis of left lower limb plan continue abx changed abx to oral another 7 days of clinda rest as per primary
--- NOTE | 2017-01-19 13:21 | DS ---
Physical Examination Vital Signs: Vital Signs Temperature 97.8 F 01/19/17 08:00 Pulse Rate 80 01/19/17 08:00 Respiratory Rate 18 01/19/17 08:00 Blood Pressure 151/91 01/19/17 08:00 O2 Sat by Pulse Oximetry (%) 97 01/19/17 09:00 Constitutional: Yes: No Distress HENT: Yes: Atraumatic Neck: Yes: Supple Cardiovascular: Yes: Regular Rate and Rhythm Respiratory: Yes: CTA Bilaterally Gastrointestinal: Yes: Normal Bowel Sounds Extremities: Yes: Other (cellulitis improved) Edema: LLE: 1+ Neurological: Yes: Alert, Oriented Labs: CBC, BMP 01/17/17 06:30 01/17/17 06:30 Discharge Summary Reason For Visit: CELLULITIS; CLOSED BIMALLEOLAR FRACTURE Current Active Problems Cellulitis (Acute) Trimalleolar fracture of left ankle (Acute) - Instructions Diet, Activity, Other Instructions: fu ortho as per instructions by them Referrals: Bea eJffers [Primary Care Provider] - - Home Medications Comprehensive Discharge Medication List: Ambulatory Orders Clindamycin [Cleocin -] 300 mg PO Q6HPO #28 capsule 01/19/17 ut home
[2017-01-19 15:09] VITALS: BP 132/82; PULSE 85; TEMP 98.2
[2017-01-19] MEDS ORDERED: CLINDAMYCIN HCL 150 MG CAPSULE (FP) PO SCH (18:00)
--- NOTE | 2017-01-23 10:29 | EKG ---
Test Reason : Blood Pressure : / mmHG Vent. Rate : 074 BPM Atrial Rate : 074 BPM P-R Int : 184 ms QRS Dur : 088 ms QT Int : 402 ms P-R-T Axes : 034 -02 001 degrees QTc Int : 446 ms NORMAL SINUS RHYTHM NORMAL ECG WHEN COMPARED WITH ECG OF 09-JAN-2017 16:01, INVERTED T WAVES HAVE REPLACED NONSPECIFIC T WAVE ABNORMALITY IN INFERIOR LEADS Confirmed by CULLEN WATSON MD ([id number]) on 01/13/2017 10:01:20 PM Also confirmed by CULLEN WATSON MD ([id number]), editor & [employer] founder ISHA HAWKINS ([id number]) on 01/23/2017 10:29:32 AM Referred By: DAVID MORRISON DR Confirmed By:CULLEN WATSON MD
== END 2017-01-19 19:07 | disposition home or self-care (01) | DRG 342 ==
LOC: JER 16:08 → JERBED 18:43 → J6S 22:12
PROVIDERS: ADMIT Internal Medicine; ATTEND Internal Medicine
DX: S82.852A Displaced trimalleolar fracture of left lower leg, initial encounter for closed fracture (principal); L03.116 Cellulitis of left lower limb; F17.210 Nicotine dependence, cigarettes, uncomplicated; F10.230 Alcohol dependence with withdrawal, uncomplicated; W18.39XA Other fall on same level, initial encounter; Y92.89 Other specified places as the place of occurrence of the external cause; Y99.8 Other external cause status
CPT/HCPCS: 36415; 73700-TC-RT; 80053; 85025; 93005; 93010; 93971-TC; 97116-GP; 97161-GP; 99282-25; G0480; J1644

== ENCOUNTER 2018-07-05 07:33 | Inpatient (IN) | payer MEDICARE, OTHER ==
[2018-07-05 07:50] VITALS: BMI 26.6
--- NOTE | 2018-07-05 08:51 | PDOC ---
History of Present Illness - General Chief Complaint: Lightheaded Stated Complaint: DIZZINESS/HEADACHE Time Seen by Provider: 07/05/18 07:58 History Source: Patient Exam Limitations: No Limitations - History of Present Illness Initial Comments: 07/05/18 08:42 52 yo male pmh of HTN (non compliant wih PCP f/u or treatment) and ETOH abuse presents to the ED with 4 days of KESSLER, lightheadedness, and unstable gait. Pt states he drinks 1/2 pint of alcohol daily but has not had a drink for about 1 week. Admits to mild tremors for a few days after last drink which have resolved and denies any s/s of withdrawal currently. KESSLER is described as pounding , non radiating, frontal without changes in vision or speech, N/V, changes in sensation or strength on 1 side of his body, neck pain. Pt has an unsteady gait but denies dizziness or the sensation as if the room is spinning around him. Also denies CP, SOB, abdominal pain, F/C, changes in bowel or bladder habits. NIH Stroke Scale - Last Known Well Date/Time & Onset Date Last Known Well: 06/30/18 (before bedtime) - Initial Evaluation Level of consciousness: Alert Ask patient the month and their age: Answers both correctly Ask patient to open & close eyes; make fist and let go: Obeys both correctly Best gaze (horizontal eye movement): Normal Visual field testing: No visual field loss Facial paresis (Show teeth/raise eyebrows/close eyes tight): Normal symmetrical movement Motor Function: Left Arm: Normal Motor Function: Right Arm: Normal (extends arm 90 (or 45) degrees for 10 seconds without drift Motor Function: Left Leg: Normal (extends leg 30 degrees for 5 seconds without drift) Motor Function: Right Leg: Normal (extends leg 30 degrees for 5 seconds without drift) Limb Ataxia: No ataxia Sensory(Use pinprick test arms,legs,trunk,face/side to side): Normal Best language (Describe picture, name items, read sentences): Mild to moderate aphasia Dysarthria (read several words): Normal articulation Extinction and Inattention: No abnormality - Total Score NIH Stroke Scale Score: 1 Past History - Past Medical History Allergies/Adverse Reactions: Allergies Allergy/AdvReac Type Severity Reaction Status Date / Time No Known Allergies Allergy Verified 07/05/18 07:59 Home Medications: Ambulatory Orders NK [No Known Home Medication] 07/05/18 Anemia: No Asthma: No Cancer: No Cardiac Disorders: No CVA: No COPD: No CHF: No Dementia: No Diabetes: No GI Disorders: No Disorders: No HTN: No Hypercholesterolemia: No Kidney Stones: No Liver Disease: No Seizures: No Thyroid Disease: No - Surgical History Abdominal Surgery: No Appendectomy: No Cardiac Surgery: No Cholecystectomy: No Lung Surgery: No Neurologic Surgery: No Orthopedic Surgery: No - Reproductive History Testicular Surgery: No - Suicide/Smoking/Psychosocial Hx Smoking Status: Yes Smoking History: Current every day smoker Have you smoked in the past 12 months: No Number of Cigarettes Smoked Daily: 10 If you are a former smoker, when did you quit?: REFUSED BOOKLET Information on smoking cessation initiated: No 'Breaking Loose' booklet given: 01/09/17 Hx Alcohol Use: No Drug/Substance Use Hx: No Substance Use Type: Alcohol Hx Substance Use Treatment: No (dwi in past???) Review of Systems - Review of Systems Constitutional: No: Chills, Fever HEENTM: No: Blurred Vision, Double Vision Respiratory: No: Shortness of Breath Cardiac (ROS): No: Chest Pain, Edema, Palpitations : No: Burning, Dysuria, Frequency, Flank Pain Musculoskeletal: No: Back Pain Neurological: Yes: Headache, Unsteady Gait. No: Numbness, Seizure, Tingling, Weakness, Ataxia, Dizziness *Physical Exam - Vital Signs Last Vital Signs Temp Pulse Resp BP Pulse Ox 98.3 F 99 H 18 159/100 99 07/05/18 07:47 07/05/18 07:47 07/05/18 07:47 07/05/18 07:47 07/05/18 07:47 - Physical Exam General Appearance: Yes: Nourished, Appropriately Dressed. No: Apparent Distress HEENT: positive: EOMI, KATHERINE, Other (bilateral cataracts) Neck: positive: Supple. negative: Carotid bruit, Tender midline Respiratory/Chest: positive: Lungs Clear, Normal Breath Sounds. negative: Accessory Muscle Use, Rapid RR, Crackles, Rales, Rhonchi, Stridor, Wheezing Cardiovascular: positive: Regular Rhythm, Regular Rate. negative: S1, S2, Edema , JVD Vascular Pulses: Dorsalis-Pedis (R): 4+, Doralis-Pedis (L): 4+ Gastrointestinal/Abdominal: positive: Flat, Soft. negative: Pulsatile Mass, Protuberent, Distended, Guarding, Rebound, Tenderness Musculoskeletal: negative: CVA Tenderness Extremity: positive: Normal Capillary Refill, Normal Inspection Integumentary: positive: Normal Color, Dry, Warm Neurologic: positive: burr grinder II-XII NML intact, Fully Oriented, Alert, Normal Mood/ Affect, Normal Response, Motor Strength 5/5. negative: Facial Droop, Numbness, Sensory Deficit, Finger to Nose (normal), Confused (according to son who is present pt is at baseline mentation), Disoriented ED Treatment Course - LABORATORY CBC & Chemistry Diagram: 07/06/18 05:30 07/06/18 05:30 - ADDITIONAL ORDERS Additional order review: Laboratory Results 07/05/18 07:56 POC Glucometer 93 07/05/18 07:56 POC Glucometer 93 - RADIOLOGY Radiology Studies Ordered: Category Date Time Status HEAD CT WITHOUT CONTRAST [CT] Stat CT Scan 07/05/18 08:41 Ordered CHEST PA & LAT [RAD] Stat Radiology 07/05/18 08:35 Ordered Medical Decision Making - Medical Decision Making 52 yo male pmh of HTN (non compliant wih PCP f/u or treatment) and ETOH abuse presents to the ED with 4 days of KESSLER, lightheadedness, and unstable gait. Pt states he drinks 1/2 pint of alcohol daily but has not had a drink for about 1 week. Admits to mild tremors for a few days after last drink which have resolved and denies any s/s of withdrawal currently. KESSLER is described as pounding , non radiating, frontal without changes in vision or speech, N/V, changes in sensation or strength on 1 side of his body, neck pain. Pt has an unsteady gait but denies dizziness or the sensation as if the room is spinning around him. Also denies CP, SOB, abdominal pain, F/C, changes in bowel or bladder habits. Vitals WNL Stroke protocol initiated, pt is outside of Tpa window, NIH scale of 1 AOX3, NAD however appears lethargic Son is present who states pt is at baseline mentation and behaviour DDX INLT: CVA, toxic/metabolic/infectious etiology, encephalopathy, cardiac/ arrhythmia EKG shows NSR without ST elevations or depressions finger BG wnl CBC, UA and Utox wnl Trop neg CMP shows elevated CK, will repeat. Denies CP, ekg normal Head CT negative for acute path Case discussed with Dr. Frey who agrees to have pt admitted to tele for further CVA/encephalopathy work up. Neuro and Cards consulted Pt stable during length of ED stay without complaints *DC/Admit/Observation/Transfer Diagnosis at time of Disposition: Weakness, TIA (transient ischemic attack) - Discharge Dispostion Condition at time of disposition: Stable Decision to Admit order: Yes - Referrals - Patient Instructions - Post Discharge Activity
[2018-07-05 09:12] LABS: PH,URINE 6.5 (5.0-8.0); URINE APPEARANCE CLEAR; URINE BILIRUBIN NEGATIVE (NEGATIVE); URINE COLOR YELLOW; URINE GLUCOSE (UA) NEGATIVE (NEGATIVE); URINE KETONE NEGATIVE (NEGATIVE); URINE LEUK ESTERASE NEGATIVE (NEGATIVE); URINE NITRITE NEGATIVE (NEGATIVE); URINE PROTEIN NEGATIVE (NEGATIVE); URINE UROBILINOGEN 0.2 mg/dL (0.2-1.0)
[2018-07-05] MEDS ORDERED: FOLIC ACID INJECTION - 1 MG, THIAMINE HCL 100 MG, MULTIVIT INJECTION ADULT 10 ML in SOD... IVPB ONE (09:16)
[2018-07-05 09:23] LABS: BASO % 0.9 % (0-2.0); EOS % 2.1 % (0-4.5); HEMATOCRIT 44.4 % (35.4-49); HEMOGLOBIN 14.8 GM/dL (11.7-16.9); LYMPH % 26.3 % (8-40); MCH 31.1 pg (25.7-33.7); MCHC 33.2 g/dl (32.0-35.9); MEAN CELL VOLUME 93.6 fl (80-96); MEAN PLT VOLUME 7.9 fl (7.5-11.1); MONO % 10.6 % (3.8-10.2); NEUT % 60.1 % (42.8-82.8); PLATELET COUNT 194 K/MM3 (134-434); RBC 4.75 M/mm3 (4.00-5.60); RDW 17.8 % (11.9-15.9); WHITE BLOOD COUNT 4.2 K/mm3 (4.0-10.0)
[2018-07-05 09:29] LABS: COCAINE, UR NEGATIVE ng/ml (CUTOFF=300); METHADONE, UR NEGATIVE ng/ml (CUTOFF=300); OPIATES, URI NEGATIVE ng/ml (CUTOFF=300); PHENCYCLIDINE,URINE NEGATIVE ng/ml (CUTOFF=25); URINE AMPHETAMINES NEGATIVE ng/ml (CUTOFF=500); URINE BARBITURATES NEGATIVE ng/ml (CUTOFF=200); URINE BENZODIAZEPINES NEGATIVE ng/ml (CUTOFF=200)
[2018-07-05 10:05] LABS: ALBUMIN 3.2 g/dl (3.4-5.0); ALK PHOS 57 U/L (45-117); ANION GAP 8 MMOL/L (8-16); BILIRUBIN,TOTAL 0.6 mg/dL (0.2-1); BLOOD UREA NITROGEN 9 mg/dL (7-18); CALCIUM 7.3 mg/dL (8.5-10.1); CHLORIDE 103 mmol/L (98-107); CO2 23 mmol/L (21-32); CREATININE 0.6 mg/dL (0.55-1.3); GLUCOSE,RANDOM 73 mg/dL (74-106); POTASSIUM 3.6 mmol/L (3.5-5.1); SGOT/AST 47 U/L (15-37); SGPT/ALT 51 U/L (13-61); SODIUM 134 mmol/L (136-145); TOT PROT 5.9 g/dl (6.4-8.2)
--- NOTE | 2018-07-05 10:55 | PDOC ---
Attending Attestation - Resident Resident Name: DiegoJulio - ED Attending Attestation I have performed the following: I have examined & evaluated the patient, The case was reviewed & discussed with the resident, I agree w/resident's findings & plan - HPI HPI: 07/05/18 10:45 52-year-old male with history of hypertension, alcoholism presents with gait unsteadiness and generalized weakness for 4 days, unrelenting so presents for evaluation. Patient awoke morning and noticed what he describes as dizziness, not vertigo but more specifically related to imbalance when he walks , mild associated generalized headache, no vomiting/vision change/speech change/ focal weakness. Family at bedside notes seen, states his speech is otherwise unchanged, they present for evaluation. Patient's last alcohol intake was about one week ago, he had mild detox for about 48 hours described as mild tremors, since resolved. - Physicial Exam PE: 07/05/18 10:47 Afebrile. Alert, conversant, no acute distress Exam is atraumatic Bilateral cataracts, otherwise visual red are intact and pupils are reactive Heart is regular, no ectopy or murmur auscultated. Lungs are clear. Wide-based gait, slightly unsteady, but 5 out of 5 motor strength bilaterally. [id number] is intact. - Medical Decision Making 07/05/18 10:48 52-year-old male with history of hypertension and alcoholism presents with 4 days of gait disturbance, hemodynamically stable here with neuro exam notable for unsteady gait, no focal weakness. Question alcohol/metabolic induced, rule out encephalopathy. Not consistent with intoxication or withdrawal. Question primary neuro etiology such as CVA. Stroke protocol initiated Labs including B12 and folate levels Banana bag, hydration EKG Admission Heart Score/ECG Review #1 ECG reviewed & interpreted by me at: 08:02 General ECG Interpretation: Sinus Rhythm (baseline artifact), Normal Rate (87), Normal Intervals (qtc 476), No acute ischemic changes NIH Stroke Scale - Last Known Well Date/Time & Onset Date Last Known Well: 06/30/18 (before going to bed, time unknown) - Initial Evaluation Level of consciousness: Alert Ask patient the month and their age: Answers both correctly Ask patient to open & close eyes; make fist and let go: Obeys both correctly Best gaze (horizontal eye movement): Normal Visual field testing: No visual field loss Facial paresis (Show teeth/raise eyebrows/close eyes tight): Normal symmetrical movement Motor Function: Left Arm: Normal Motor Function: Right Arm: Normal (extends arm 90 (or 45) degrees for 10 seconds without drift Motor Function: Left Leg: Normal (extends leg 30 degrees for 5 seconds without drift) Motor Function: Right Leg: Normal (extends leg 30 degrees for 5 seconds without drift) Limb Ataxia: No ataxia Sensory(Use pinprick test arms,legs,trunk,face/side to side): Normal Best language (Describe picture, name items, read sentences): No Aphasia Dysarthria (read several words): Mild to moderate slurring of words (chronic?) Extinction and Inattention: No abnormality - Total Score NIH Stroke Scale Score: 1
[2018-07-05 11:53] LABS: INR 0.87 (0.83-1.09); PROTHROMBIN TIME (PATIENT) 10.3 SEC (9.7-13.0)
[2018-07-05 12:15] LABS: CHOLESTEROL 178 mg/dL (50-200)
[2018-07-05 12:16] LABS: HDL CHOLESTEROL 108 mg/dL (40-60); TRIGLYCERIDES 79 mg/dL (0-150)
--- NOTE | 2018-07-05 19:11 | HP ---
Admitting History and Physical - Primary Care Physician PCP: Pascale Frey - Admission History of Present Illness: 52-year-old male with history of hypertension, alcoholism presents with gait unsteadiness and generalized weakness for 4 days, unrelenting so presents for evaluation. Patient awoke Thday morning and noticed what he describes as dizziness, not vertigo but more specifically related to imbalance when he walks , mild associated generalized headache, no vomiting/vision change/speech change/ focal weakness. Family at bedside notes seen, states his speech is otherwise unchanged, they present for evaluation. Patient's last alcohol intake was about one week ago, he had mild detox for about 48 hours described as mild tremors, since resolved. - Past Medical History Cardiovascular: Yes: HTN - Smoking History Smoking history: Current every day smoker Have you smoked in the past 12 months: No Aproximately how many cigarettes per day: 10 If you are a former smoker, when did you quit?: REFUSED BOOKLET - Alcohol/Substance Use Hx Alcohol Use: No Home Medications - Allergies Allergies/Adverse Reactions: Allergies Allergy/AdvReac Type Severity Reaction Status Date / Time No Known Allergies Allergy Verified 07/05/18 07:59 - Home Medications Home Medications: Ambulatory Orders NK [No Known Home Medication] 07/05/18 Physical Examination Vital Signs: Vital Signs Temperature 98.6 F 07/05/18 16:33 Pulse Rate 89 07/05/18 16:33 Respiratory Rate 16 07/05/18 17:18 Blood Pressure 146/96 07/05/18 16:33 O2 Sat by Pulse Oximetry (%) 98 07/05/18 17:18 Constitutional: Yes: No Distress HENT: Yes: Atraumatic Neck: Yes: Supple Cardiovascular: Yes: Regular Rate and Rhythm Respiratory: Yes: CTA Bilaterally Gastrointestinal: Yes: Normal Bowel Sounds Extremities: Yes: WNL Labs: CBC, BMP 07/05/18 09:12 07/05/18 09:12 Problem List - Problems (1) TIA (transient ischemic attack) Assessment/Plan: will monitor neuro consult Code(s): G45.9 - TRANSIENT CEREBRAL ISCHEMIC ATTACK, UNSPECIFIED (2) Weakness Assessment/Plan: PT eval Code(s): R53.1 - WEAKNESS (3) Alcohol dependence with uncomplicated withdrawal Assessment/Plan: monitor for withdrawl detox consult prn ativan Code(s): F10.230 - ALCOHOL DEPENDENCE WITH WITHDRAWAL, UNCOMPLICATED Assessment/Plan Laboratory Tests 07/05/18 07/05/18 07/05/18 07:56 08:58 08:58 WBC RBC Hgb Hct MCV MCH MCHC RDW Plt Count MPV Absolute Neuts (auto) Neutrophils % Lymphocytes % Monocytes % Eosinophils % Basophils % Nucleated RBC % PT with INR INR Sodium Potassium Chloride Carbon Dioxide Anion Gap BUN Creatinine Creat Clearance w eGFR POC Glucometer 93 Random Glucose Calcium Total Bilirubin AST ALT Alkaline Phosphatase Ammonia Creatine Kinase Creatine Kinase Index CK-MB (CK-2) Troponin I Total Protein Albumin Triglycerides Cholesterol Total LDL Cholesterol HDL Cholesterol Vitamin B12 Serum Folate Urine Color Yellow Urine Appearance Clear Urine pH 6.5 D Ur Specific Meno 1.002 L Urine Protein Negative Urine Glucose (UA) Negative Urine Ketones Negative Urine Blood Negative Urine Nitrite Negative Urine Bilirubin Negative Urine Urobilinogen 0.2 Ur Leukocyte Esterase Negative Opiates Screen Negative Methadone Screen Negative Barbiturate Screen Negative Phencyclidine Screen Negative Ur Amphetamines Screen Negative MDMA (Ecstasy) Screen Negative Benzodiazepines Screen Negative Cocaine Screen Negative U Marijuana (THC) Screen Negative Alcohol, Quantitative 07/05/18 07/05/18 07/05/18 09:12 09:12 11:11 WBC 4.2 RBC 4.75 Hgb 14.8 Hct 44.4 MCV 93.6 MCH 31.1 MCHC 33.2 RDW 17.8 H Plt Count 194 D MPV 7.9 Absolute Neuts (auto) 2.5 Neutrophils % 60.1 D Lymphocytes % 26.3 D Monocytes % 10.6 H Eosinophils % 2.1 Basophils % 0.9 Nucleated RBC % 0 PT with INR INR Sodium 134 L Potassium 3.6 Chloride 103 Carbon Dioxide 23 Anion Gap 8 BUN 9 Creatinine 0.6 Creat Clearance w eGFR 141.48 POC Glucometer Random Glucose 73 L Calcium 7.3 L Total Bilirubin 0.6 AST 47 H ALT 51 Alkaline Phosphatase 57 Ammonia Creatine Kinase 429 H 470 H Creatine Kinase Index 1.0 1.0 CK-MB (CK-2) 4.47 H 4.9 H Troponin I < 0.02 < 0.02 Total Protein 5.9 L Albumin 3.2 L Triglycerides 79 Cholesterol 178 Total LDL Cholesterol 66 HDL Cholesterol 108 H Vitamin B12 5184 H Serum Folate 31 H Urine Color Urine Appearance Urine pH Ur Specific Meno Urine Protein Urine Glucose (UA) Urine Ketones Urine Blood Urine Nitrite Urine Bilirubin Urine Urobilinogen Ur Leukocyte Esterase Opiates Screen Methadone Screen Barbiturate Screen Phencyclidine Screen Ur Amphetamines Screen MDMA (Ecstasy) Screen Benzodiazepines Screen Cocaine Screen U Marijuana (THC) Screen Alcohol, Quantitative < 3.0 07/05/18 07/05/18 11:11 11:11 WBC RBC Hgb Hct MCV MCH MCHC RDW Plt Count MPV Absolute Neuts (auto) Neutrophils % Lymphocytes % Monocytes % Eosinophils % Basophils % Nucleated RBC % PT with INR 10.30 INR 0.87 Sodium Potassium Chloride Carbon Dioxide Anion Gap BUN Creatinine Creat Clearance w eGFR POC Glucometer Random Glucose Calcium Total Bilirubin AST ALT Alkaline Phosphatase Ammonia 30.60 Creatine Kinase Creatine Kinase Index CK-MB (CK-2) Troponin I Total Protein Albumin Triglycerides Cholesterol Total LDL Cholesterol HDL Cholesterol Vitamin B12 Serum Folate Urine Color Urine Appearance Urine pH Ur Specific Meno Urine Protein Urine Glucose (UA) Urine Ketones Urine Blood Urine Nitrite Urine Bilirubin Urine Urobilinogen Ur Leukocyte Esterase Opiates Screen Methadone Screen Barbiturate Screen Phencyclidine Screen Ur Amphetamines Screen MDMA (Ecstasy) Screen Benzodiazepines Screen Cocaine Screen U Marijuana (THC) Screen Alcohol, Quantitative Active Medications Generic Name Dose Route Start Last Admin Trade Name Freq PRN Reason Stop Dose Admin Acetaminophen 650 mg 07/05/18 19:12 Tylenol - PO Q6H PRN FEVER
[2018-07-05] MEDS ORDERED: ACETAMINOPHEN 325 MG TABLET (FP) PO PRN (19:12)
[2018-07-06 06:55] LABS: BASO % 0.9 % (0-2.0); EOS % 2.1 % (0-4.5); HEMATOCRIT 40.1 % (35.4-49); HEMOGLOBIN 13.4 GM/dL (11.7-16.9); MCH 31.8 pg (25.7-33.7); MCHC 33.3 g/dl (32.0-35.9); MEAN CELL VOLUME 95.2 fl (80-96); MONO % 9.7 % (3.8-10.2); NEUT % 50.3 % (42.8-82.8); PLATELET COUNT 155 K/MM3 (134-434); RBC 4.22 M/mm3 (4.00-5.60); RDW 18.1 % (11.9-15.9); WHITE BLOOD COUNT 4.2 K/mm3 (4.0-10.0)
[2018-07-06 07:20] LABS: ALBUMIN 3.4 g/dl (3.4-5.0); ALK PHOS 58 U/L (45-117); ANION GAP 5 MMOL/L (8-16); BILIRUBIN,TOTAL 0.4 mg/dL (0.2-1); BLOOD UREA NITROGEN 13 mg/dL (7-18); CALCIUM 8.7 mg/dL (8.5-10.1); CHLORIDE 104 mmol/L (98-107); CO2 26 mmol/L (21-32); CREATININE 0.5 mg/dL (0.55-1.3); GLUCOSE,RANDOM 84 mg/dL (74-106); POTASSIUM 3.8 mmol/L (3.5-5.1); SGOT/AST 35 U/L (15-37); SGPT/ALT 53 U/L (13-61); SODIUM 135 mmol/L (136-145); TOT PROT 6.5 g/dl (6.4-8.2)
--- NOTE | 2018-07-06 14:10 | CON.CARD ---
Consult Consult Specialty:: Cardiology Referred by:: Dr. Frey Reason for Consultation:: Cardiac evaluation - History of Present Illness Chief Complaint: Dizziness and unsteady gait History of Present Illness: Patient is a 52 year old male with underlying history of HTN and history of ETOH use presents with unsteady gait and generalized weakness for past several days. He complains of dizziness and imbalance on when he woke up associated with headache. He denies chest pain, SOB or palpitations. He denies paroxysmal nocturnal dyspnea or orthopnea. He denies fever or chills. He denies nausea, vomiting, diarrhea or abdominal pain. He denies headache. - History Source History Provided By: Patient, Medical Record Limitations to Obtaining History: No Limitations - Past Medical History Cardio/Vascular: Yes: HTN - Alcohol/Substance Use Hx Alcohol Use: Yes - Smoking History Smoking history: Current every day smoker Have you smoked in the past 12 months: No Aproximately how many cigarettes per day: 10 If you are a former smoker, when did you quit?: REFUSED BOOKLET Home Medications - Allergies Allergies/Adverse Reactions: Allergies Allergy/AdvReac Type Severity Reaction Status Date / Time No Known Allergies Allergy Verified 07/05/18 07:59 - Home Medications Home Medications: Ambulatory Orders NK [No Known Home Medication] 07/05/18 Review of Systems - Review of Systems Constitutional: reports: Weakness. denies: Chills, Fever Cardiovascular: denies: Chest Pain, Palpitations, Shortness of Breath Respiratory: denies: Cough, Hemoptysis, Orthopnea, PND, SOB, SOB on Exertion Gastrointestinal: denies: Constipation, Diarrhea, Melena, Nausea, Rectal Bleeding, Vomiting Genitourinary: denies: Dysuria, Hematuria Neurological: reports: Dizziness. denies: Headache, Seizure, Syncope Vital Signs: Vital Signs Temperature 98.1 F 07/06/18 08:58 Pulse Rate 84 07/06/18 08:58 Respiratory Rate 18 07/06/18 08:58 Blood Pressure 130/84 07/06/18 08:58 O2 Sat by Pulse Oximetry (%) 99 07/06/18 08:57 HENT: Yes: Atraumatic Neck: Yes: Supple Respiratory: Yes: CTA Bilaterally Gastrointestinal: Yes: Normal Bowel Sounds, Soft. No: Tenderness Cardiovascular: Yes: Regular Rate and Rhythm JVD: No PMI: Non-Displaced Heart Sounds: Yes: S1, S2 Edema: No - Other Data Labs, Other Data: CBC, BMP 07/06/18 05:30 07/06/18 05:30 INR, PTT INR 0.87 (0.83-1.09) 07/05/18 11:11 Troponin, BNP 07/05/18 19:40 Troponin I < 0.02 Normal sinus rhythm with septal infarct Imaging - Results Chest X-ray: Report Reviewed (Unremarkable) Cat Scan: Report Reviewed (Head CT unremarkable) EKG: Report Reviewed Problem List - Problems (1) HTN (hypertension) Code(s): I10 - ESSENTIAL (PRIMARY) HYPERTENSION (2) TIA (transient ischemic attack) Code(s): G45.9 - TRANSIENT CEREBRAL ISCHEMIC ATTACK, UNSPECIFIED (3) Weakness Code(s): R53.1 - WEAKNESS (4) Alcohol dependence with uncomplicated withdrawal Code(s): F10.230 - ALCOHOL DEPENDENCE WITH WITHDRAWAL, UNCOMPLICATED Assessment/Plan 1. Dizziness and unsteady gait 2. ? TIA 3. HTN PLAN: 1. Add beta yumiko as tolerated 2. ASA 3. Echocardiography to assess LV/RV and valvular function 4. Monitor neuro status 5. Carotid Doppler 6. Substance abuse counseling Further plans are to follow Héctor Grady MD
--- NOTE | 2018-07-06 14:44 | EKG ---
Test Reason : Blood Pressure : / mmHG Vent. Rate : 087 BPM Atrial Rate : 087 BPM P-R Int : 188 ms QRS Dur : 090 ms QT Int : 396 ms P-R-T Axes : 078 028 -56 degrees QTc Int : 476 ms NORMAL SINUS RHYTHM POSSIBLE LEFT ATRIAL ENLARGEMENT SEPTAL INFARCT , AGE UNDETERMINED ABNORMAL ECG WHEN COMPARED WITH ECG OF 13-JAN-2017 09:15, NONSPECIFIC T WAVE ABNORMALITY NOW EVIDENT IN LATERAL LEADS Confirmed by Darien Nieto ([id number]) on 07/06/2018 2:44:20 PM Referred By: Confirmed By:Darien Nieto
--- NOTE | 2018-07-06 16:41 | PN ---
S Progress Note (SOAP) Subjective: 52 y.o. male referred for consultation , reports etoh 2 nips /d ay , denies regular use, denies seizures, blackouts, tremors " i don't drink like that " . Denies symptoms at this time, reports ahe is able to ambulate freely . Active Medications Acetaminophen (Tylenol -) 650 mg PO Q6H PRN PRN Reason: FEVER Objective: wnwd resting in bed comfortably , NAD HEENT : NCAT EOMI Resp : no distress noted Ext : no c/c/e Neuro: AAO x 3 CBC, BMP 07/06/18 05:30 07/06/18 05:30 Vital Signs - 24 hr 07/05/18 07/05/18 07/05/18 17:18 18:00 19:40 Temperature 98.2 F 98.7 F Pulse Rate 100 H 89 Respiratory 16 16 20 Rate Blood Pressure 120/80 137/85 O2 Sat by Pulse 98 Oximetry (%) 07/05/18 07/06/18 07/06/18 21:00 00:00 05:54 Temperature 99.1 F 97.7 F Pulse Rate 90 83 Respiratory 20 Rate Blood Pressure 133/97 143/94 O2 Sat by Pulse 99 Oximetry (%) 07/06/18 07/06/18 07/06/18 08:57 08:58 14:00 Temperature 98.1 F 98.3 F Pulse Rate 84 83 Respiratory 20 18 20 Rate Blood Pressure 130/84 150/97 O2 Sat by Pulse 99 Oximetry (%) Plan: per medical , pt declines further evaluation from addiction medicine services.
--- NOTE | 2018-07-06 18:37 | PN ---
Progress Note, Physician - Current Medication List Current Medications: Active Medications Acetaminophen (Tylenol -) 650 mg PO Q6H PRN PRN Reason: FEVER - Objective Vital Signs: Vital Signs Temperature 98.3 F 07/06/18 14:00 Pulse Rate 83 07/06/18 14:00 Respiratory Rate 20 07/06/18 14:00 Blood Pressure 150/97 07/06/18 14:00 O2 Sat by Pulse Oximetry (%) 99 07/06/18 08:57 Constitutional: Yes: No Distress HENT: Yes: Atraumatic Neck: Yes: Supple Cardiovascular: Yes: Regular Rate and Rhythm Respiratory: Yes: CTA Bilaterally Gastrointestinal: Yes: Normal Bowel Sounds Extremities: Yes: WNL Edema: No Peripheral Pulses WNL: Yes Neurological: Yes: Alert Labs: CBC, BMP 07/06/18 05:30 07/06/18 05:30 INR, PTT INR 0.87 (0.83-1.09) 07/05/18 11:11 Problem List - Problems (1) TIA (transient ischemic attack) Assessment/Plan: doing well neuro consult pending Code(s): G45.9 - TRANSIENT CEREBRAL ISCHEMIC ATTACK, UNSPECIFIED (2) Weakness Assessment/Plan: walking fine no deficit Code(s): R53.1 - WEAKNESS (3) Alcohol dependence with uncomplicated withdrawal Assessment/Plan: refusing detox Code(s): F10.230 - ALCOHOL DEPENDENCE WITH WITHDRAWAL, UNCOMPLICATED
--- NOTE | 2018-07-07 09:33 | CON.NEURO ---
Consult Consult Specialty:: Nicolette Referred by:: ER - History of Present Illness History of Present Illness: 52-year-old right-handed -Citizen Of [place] man with history of vocal abuse presented to the hospital with altered mental status patient last drink was last Thursday so the patient on telemetry since admission to the hospital no report of any seizure-like activity patient is coming along patient with no fever patient was evaluated by cardiology. - History Source History Provided By: Patient Limitations to Obtaining History: No Limitations - Past Medical History Cardio/Vascular: Yes: HTN - Alcohol/Substance Use Hx Alcohol Use: Yes - Smoking History Smoking history: Current every day smoker Have you smoked in the past 12 months: No Aproximately how many cigarettes per day: 10 If you are a former smoker, when did you quit?: REFUSED BOOKLET Home Medications - Allergies Allergies/Adverse Reactions: Allergies Allergy/AdvReac Type Severity Reaction Status Date / Time No Known Allergies Allergy Verified 07/05/18 07:59 - Home Medications Home Medications: Ambulatory Orders NK [No Known Home Medication] 07/05/18 Family Disease History - Family Disease History Family History: Denies (seizure) Review of Systems - Review of Systems Constitutional: reports: No Symptoms Eyes: reports: No Symptoms Neurological: reports: No Symptoms, Headache, Incoordination Physical Exam-Neuro Vital Signs: Vital Signs Temperature 97.8 F 07/07/18 06:00 Pulse Rate 81 07/07/18 06:00 Respiratory Rate 18 07/07/18 06:00 Blood Pressure 149/85 07/07/18 06:00 O2 Sat by Pulse Oximetry (%) 99 07/06/18 21:00 Constitutional: Yes: Well Nourished Neck: Yes: WNL Cardiovascular: Yes: WNL Labs: CBC, BMP 07/06/18 05:30 07/06/18 05:30 INR, PTT INR 0.87 (0.83-1.09) 07/05/18 11:11 - Neuro Exam Level Of Consciousness: Yes: Oriented to Person, Oriented to Place, Oriented to Time Eyes: Yes: PERRLA Speech: WNL Dominant Hand: Right Cranial Nerves II-XII Intact: Yes Gag: Present DTR's: 0 Left Bicep, 0 Right Bicep, 0 Left Tricep, 0 Right Tricep, 0 Left Brachioradialis, 0 Right Brachioradialis, 0 Left Achilles, 0 Right Achilles Response to light touch: Normal Response to pain prick: Normal Response to temperature: Normal Motor Strength: 3/5: Left Arm, Right Arm, Left Leg, Right Leg Gait: Deferred Imaging - Results Cat Scan: Image Reviewed Problem List - Problems (1) Weakness Assessment/Plan: no evidence of encephalopathy No evidence of TIA or stroke 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 Agree to plan 2. Please do not ordered MRI 3. Follow-up with cardiology to transfer off the floor 4. DT prophylaxis with the protocol Code(s): R53.1 - WEAKNESS
[2018-07-07] MEDS ORDERED: ASPIRIN COATED 81 MG TABLET.EC PO SCH (10:00)
[2018-07-07] MEDS ORDERED: METOPROLOL TARTRATE 25 MG TABLET (FP) PO SCH (10:00)
--- NOTE | 2018-07-07 10:14 | PN ---
Progress Note, Physician History of Present Illness: Unsteady gait, weakness, dizziness and imbalance resolved. No events on telemetry. - Current Medication List Current Medications: Active Medications Acetaminophen (Tylenol -) 650 mg PO Q6H PRN PRN Reason: FEVER Last Admin: 07/06/18 20:42 Dose: 650 mg Aspirin (Ecotrin -) 81 mg PO DAILY ERLINDA Metoprolol Tartrate (Lopressor -) 25 mg PO BID ERLINDA - Objective Vital Signs: Vital Signs Temperature 97.8 F 07/07/18 06:00 Pulse Rate 81 07/07/18 06:00 Respiratory Rate 18 07/07/18 06:00 Blood Pressure 149/85 07/07/18 06:00 O2 Sat by Pulse Oximetry (%) 99 07/06/18 21:00 Constitutional: Yes: No Distress, Calm, Thin Neck: Yes: Supple Cardiovascular: Yes: Regular Rate and Rhythm Respiratory: Yes: Regular, CTA Bilaterally Gastrointestinal: Yes: Normal Bowel Sounds, Soft Edema: No Labs: CBC, BMP 07/06/18 05:30 07/06/18 05:30 INR, PTT INR 0.87 (0.83-1.09) 07/05/18 11:11 Problem List - Problems (1) HTN (hypertension) Code(s): I10 - ESSENTIAL (PRIMARY) HYPERTENSION Qualifiers: Hypertension type: essential hypertension Qualified Code(s): I10 - Essential (primary) hypertension (2) Weakness Code(s): R53.1 - WEAKNESS (3) Alcohol dependence with uncomplicated withdrawal Code(s): F10.230 - ALCOHOL DEPENDENCE WITH WITHDRAWAL, UNCOMPLICATED Assessment/Plan 1. Dizziness and unsteady gait since resolved 2. No evidence of TIA or stroke or encephalopathy 3. HTN 4. 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 Ruled out for GA 2. Continue Lopressor 25 bid, d/c ASA 81 qd 3. Substance abuse counseling, pt declines further evaluation from addiction medicine services. 4. D/c planning
--- NOTE | 2018-07-07 13:05 | ECHO ---
Name: KAYLYN KING Exam:Adult Echocardiogram Study Date: 07/07/2018 09:35 AM Age: 52 yrs Reason For Study: ? TIA Height: 65 in Weight: 165 lb BSA: 1.8 m2 MMode/2D Measurements & Calculations IVSd: 1.1 cm Ao root diam: 3.0 cm LVIDd: 4.6 cm LA dimension: 3.7 cm LVIDs: 3.1 cm LVPWd: 0.91 cm EDV(Teich): 99.2 ml LVOT diam: 2.1 cm ESV(Teich): 38.3 ml TAPSE: 2.4 cm Doppler Measurements & Calculations MV E max toni: 54.9 cm/sec Ao V2 max: 114.0 cm/sec MV A max toni: 62.0 cm/sec Ao max P.2 mmHg MV E/A: 0.89 MV dec time: 0.20 sec RAN(V,D): 2.4 cm2 LV V1 max P.5 mmHg SV(LVOT): 52.6 ml LV V1 mean P.2 mmHg LV V1 max: 78.4 cm/sec LV V1 mean: 50.8 cm/sec LV V1 VTI: 15.0 cm Med Peak E' Toni: 6.4 cm/sec Med E/e': 8.6 Lat Peak E' Toni: 10.9 cm/sec Lat E/e': 5.0 Procedure A two-dimensional transthoracic echocardiogram with color flow and Doppler was performed. Left Ventricle The left ventricular size, thickness and function are normal. The left ventricular ejection fraction is normal. Left Ventricular Filling pattern is normal for age. The left ventricular wall motion is jose roberto l. Right Ventricle The right ventricle is normal in size and function. Atria Normal left and right atrial size and function. Mitral Valve The mitral valve is normal in structure and function. There is no mitral valve stenosis. There is tra ce to mild mitral regurgitation. Tricuspid Valve The tricuspid valve is normal in structure and function. There is no tricuspid stenosis. There was insufficient TR detected to calculate RV systolic pressure. Right ventricular systolic pressure is no rmal. Aortic Valve The aortic valve is normal in structure and function. No hemodynamically significant valvular aortic stenosis. No aortic regurgitation is present. Pulmonic Valve The pulmonic valve is not well visualized. Great Vessels The aortic root is normal size. Pericardium/Pleura There is no pericardial effusion. Interpretation Summary A two-dimensional transthoracic echocardiogram with color flow and Doppler was performed. The left ventricular size, thickness and function are normal The left ventricular ejection fraction is normal. The left ventricular wall motion is normal. There was insufficient TR detected to calculate RV systolic pressure. Right ventricular systolic pressure is normal. There is trace to mild mitral regurgitation. Left Ventricular Filling pattern is normal for age. MD Ibrahima Hawkins 07/07/2018 01:04 PM
[2018-07-07 14:17] VITALS: BP 157/91; PULSE 78; TEMP 98
--- NOTE | 2018-07-07 16:10 | DS ---
Physical Examination Vital Signs: Vital Signs Temperature 98 F 07/07/18 14:00 Pulse Rate 78 07/07/18 14:00 Respiratory Rate 20 07/07/18 14:00 Blood Pressure 157/91 07/07/18 14:00 O2 Sat by Pulse Oximetry (%) 99 07/07/18 09:00 Constitutional: Yes: No Distress HENT: Yes: Atraumatic Neck: Yes: Supple Cardiovascular: Yes: Regular Rate and Rhythm Respiratory: Yes: CTA Bilaterally Gastrointestinal: Yes: Normal Bowel Sounds Extremities: Yes: WNL Edema: No Neurological: Yes: Alert, Oriented Labs: CBC, BMP 07/06/18 05:30 07/06/18 05:30 Discharge Summary Reason For Visit: TIA WEAKNESS Current Active Problems HTN (hypertension) (Acute) TIA (transient ischemic attack) (Acute) Weakness (Acute) Condition: Stable - Instructions - Home Medications Comprehensive Discharge Medication List: Ambulatory Orders Aspirin Coated [Ecotrin -] 81 mg PO DAILY #30 tablet.ec 07/07/18 cleared by cardiology and neurology to be dc
== END 2018-07-07 16:59 | disposition home or self-care (01) | DRG 48 ==
LOC: JER 07:33 → JERBED 12:55 → J4W 17:07
PROVIDERS: ADMIT Internal Medicine; ATTEND Internal Medicine
DX: G62.1 Alcoholic polyneuropathy (principal); F10.230 Alcohol dependence with withdrawal, uncomplicated; I10 Essential (primary) hypertension; R53.1 Weakness; F17.210 Nicotine dependence, cigarettes, uncomplicated
CPT/HCPCS: 36415; 70450-TC; 71046-TC-FY; 80053; 80061; 80307; 81003; 82140; 82550; 82553; 82607; 82746; 82962; 83721; 84484; 85025; 85610; 87086; 93005; 93010; 93306-TC; 97116-GP; 97161-GP; 99285-25; J7030

== ENCOUNTER 2023-07-10 15:11 | Emergency (ER) | payer OTHER ==
[2023-07-10 15:17] VITALS: BP 182/110; PULSE 96; RESP 18; TEMP 98.6; BMI 27.4
[2023-07-10] MEDS ORDERED: ACETAMINOPHEN 325 MG TABLET (FP) ONE (16:42)
[2023-07-10] MEDS ORDERED: KETOROLAC TROMETHAMINE 15 MG/ML VIAL ONE (16:43)
[2023-07-10] MEDS ORDERED: FAMOTIDINE 20 MG TABLET ONE (17:12)
[2023-07-10] MEDS: ACETAMINOPHEN 500 MG TABLET (FP) PO ONE (17:15)
[2023-07-10] MEDS: KETOROLAC TROMETHAMINE 15 MG/ML VIAL IM ONE (17:15)
[2023-07-10] MEDS: FAMOTIDINE 20 MG TABLET PO ONE (17:15)
== END 2023-07-10 18:51 | disposition home or self-care (01) ==
LOC: JERFT 15:11
PROC: 3E0233Z Introduction of Anti-inflammatory into Muscle, Percutaneous Approach (ICD-10-PCS; principal; 2023-07-10)
DX: M25.562 Pain in left knee (principal); M25.572 Pain in left ankle and joints of left foot; M54.9 Dorsalgia, unspecified; M79.10 Myalgia, unspecified site; R91.1 Solitary pulmonary nodule; V09.1XXA Pedestrian injured in unspecified nontraffic accident, initial encounter; Y93.I9 Activity, other involving external motion; Y92.410 Unspecified street and highway as the place of occurrence of the external cause
CPT/HCPCS: 70450-TC; 71046-TC-FY; 72125-TC; 73502-TC-LT-FY; 73562-TC-LT-FY; 73590-TC-LT-FY; 73610-TC-LT-FY; 73630-TC-LT; 99284-25

== ENCOUNTER 2023-08-19 21:20 | Emergency (ER) | payer OTHER ==
[2023-08-19 21:26] VITALS: BP 165/106; PULSE 95; RESP 20; TEMP 97.9; BMI 25.8
[2023-08-19] MEDS ORDERED: ACETAMINOPHEN INJECTION 100 ML IVPB ONE (22:08)
[2023-08-19] MEDS ORDERED: MAG HYDROX/AL HYDROX/SIMETH 30 ML UNIT-DOSE CUP ONE (22:08)
[2023-08-19] MEDS ORDERED: FAMOTIDINE 20 MG/50 ML IVPB 20 MG/50 ML MG IVPB ONE (22:08)
[2023-08-19 22:12] LABS: BASO % 0.9 % (0-2.0); EOS % 1.7 % (0-4.5); HEMOGLOBIN 13.8 GM/dL (11.7-16.9); LYMPH % 54.7 % (8-40); MCH 32.1 pg (25.7-33.7); MCHC 34.4 g/dl (32.0-35.9); MEAN CELL VOLUME 93.3 fl (80-96); MEAN PLT VOLUME 7.1 fl (7.5-11.1); MONO % 8.4 % (3.8-10.2); NEUT % 34.3 % (42.8-82.8); PLATELET COUNT 197 10^3/uL (134-434); RBC 4.29 M/mm3 (4.00-5.60); RDW 17.5 % (11.9-15.9); WHITE BLOOD COUNT 5.3 K/mm3 (4.0-10.0)
[2023-08-19] MEDS: FAMOTIDINE 20 MG/50 ML IVPB 20 MG/50 ML MG IVPB ONE (22:15)
[2023-08-19] MEDS: MAG HYDROX/AL HYDROX/SIMETH 30 ML UNIT-DOSE CUP PO ONE (22:15)
[2023-08-19] MEDS: ACETAMINOPHEN 1000 MG/100 ML BAG IVPB ONE (22:15)
[2023-08-19] MEDS: LACTATED RINGERS SOLUTION 1000 ML INFUS.BAG IV ONE (22:15)
[2023-08-19 22:32] LABS: CALCIUM 8.9 mg/dL (8.5-10.1)
[2023-08-19 22:33] LABS: ALBUMIN 3.9 g/dl (3.4-5.0); BLOOD UREA NITROGEN 6.2 mg/dL (7-18); MAGNESIUM 2.2 mg/dL (1.8-2.4)
[2023-08-19 22:36] LABS: CREATININE 0.7 mg/dL (0.55-1.3)
[2023-08-19 22:37] LABS: BILIRUBIN,TOTAL 0.4 mg/dL (0.2-1); TOT PROT 7.8 g/dl (6.4-8.2)
== END 2023-08-19 23:23 | disposition home or self-care (01) ==
LOC: JER 21:20
PROC: 3E033GC Introduction of Other Therapeutic Substance into Peripheral Vein, Percutaneous Approach (ICD-10-PCS; principal; 2023-08-19)
PROC: 3E033NZ Introduction of Analgesics, Hypnotics, Sedatives into Peripheral Vein, Percutaneous Approach (ICD-10-PCS; 2023-08-19)
DX: R10.9 Unspecified abdominal pain (principal); I10 Essential (primary) hypertension; R07.9 Chest pain, unspecified; R09.89 Other specified symptoms and signs involving the circulatory and respiratory systems
CPT/HCPCS: 36415; 71046-TC-FY; 80053; 83690; 83735; 84484; 85025; 93005; 93010; 99284-25; J0131

== ENCOUNTER 2023-08-20 14:38 | Emergency (ER) | payer OTHER ==
[2023-08-20 14:43] VITALS: PULSE 92; RESP 18; TEMP 98.5; BMI 25.0
[2023-08-20] MEDS ORDERED: ACETAMINOPHEN 325 MG TABLET (FP) ONE (15:20)
[2023-08-20] MEDS: ACETAMINOPHEN 500 MG TABLET (FP) PO ONE (15:28)
[2023-08-20 16:11] VITALS: BP 138/85
== END 2023-08-20 16:32 | disposition home or self-care (01) ==
LOC: JER 14:38
DX: I10 Essential (primary) hypertension (principal); R10.9 Unspecified abdominal pain; R51.9 Headache, unspecified
CPT/HCPCS: 99283-25